=== PATIENT | female | born 1945 | race Caucasian/White ===

== ENCOUNTER → 2016-05-29 | Outpatient (REF) | payer MEDICARE | LOC: M SFHCPLAZ 16:35 | PROVIDERS: ATTEND Internal Medicine | DX: R21 Rash and other nonspecific skin eruption (principal) ==

== ENCOUNTER → 2016-05-30 | Outpatient (CLI) | payer MEDICARE ==
[2016-06-02 00:08] LABS: HSV TYPE I IgM AB <1:10 titer (<1:10); HSV TYPE II IgM ABY <1:10 titer (<1:10)
== END ==
LOC: M LAB 13:10
PROVIDERS: ATTEND Internal Medicine
DX: R21 Rash and other nonspecific skin eruption (principal)

== ENCOUNTER → 2016-06-05 | Outpatient (CLI) | payer MEDICARE ==
--- NOTE | 2016-06-05 14:49 | REPMRS ---
Patient History The patient states she had a clinical breast exam in 05/2016. Patient is postmenopausal. No known family history of cancer. Benign cyst aspiration. Digital Woman Screen Mammo: June 05, 2016 - Exam #: [id number] Bilateral CC and MLO view(s) were taken. Technologist: Ijeoma Alves, Technologist Prior study comparison: April 28, 2015, digital woman screen mammo performed at [facility]. April 22, 2014, digital woman screen mammo performed at [facility]. April 21, 2013, digital woman screen mammo performed at [facility]. FINDINGS: There are scattered fibroglandular densities. There has been no change in the appearance of the mammogram from the prior studies. There is a mild amount of scattered fibroglandular density which is fairly symmetric. There is no interval development of dominant mass, architectural distortion, or clustered microcalcification suggestive of malignancy. ASSESSMENT: BI-RADS/ACR category 1 mammogram. Negative. Recommendation Routine screening mammogram in 1 year (for women over age 40). This mammogram was interpreted with the aid of an FDA-approved computer-aided dectection system. Electronically Signed By: Melecio Barrios MD 06/05/16 [id number]
== END ==
LOC: M WHC 13:11
PROVIDERS: ATTEND Nurse Practitioner Family
DX: Z01.419 Encounter for gynecological examination (general) (routine) without abnormal findings (principal); Z12.31 Encounter for screening mammogram for malignant neoplasm of breast; Z78.0 Asymptomatic menopausal state; Z12.12 Encounter for screening for malignant neoplasm of rectum
CPT/HCPCS: 82270; G0101; G0202

== ENCOUNTER → 2016-11-27 | Outpatient (REF) | payer MEDICARE ==
[2016-11-27 12:05] LABS: ALBUMIN 3.7 GM/DL (3.2-5.2); ALBUMIN/GLOBULIN RATIO 1.16 (1.00-1.93); ALKALINE PHOSPHATASE 49 U/L (45-117); ALT/SGPT 26 U/L (12-78); ANION GAP 7 MEQ/L (8-16); AST/SGOT 21 U/L (15-37); BILIRUBIN,TOTAL 0.5 MG/DL (0.2-1.0); BLOOD UREA NITROGEN 18 MG/DL (7-18); CALCIUM LEVEL 9.1 MG/DL (8.8-10.2); CARBON DIOXIDE LEVEL 28 MEQ/L (21-32); CHLORIDE LEVEL 107 MEQ/L (98-107); CHOLESTEROL LEVEL 218 MG/DL (<200); CREATININE FOR GFR 0.75 MG/DL (0.55-1.02); GLOMERULAR FILTRATION RATE > 60.0 (>39); GLUCOSE, FASTING 91 MG/DL (83-110); POTASSIUM SERUM 4.1 MEQ/L (3.5-5.1); SODIUM LEVEL 142 MEQ/L (136-145); TOTAL PROTEIN 6.9 GM/DL (6.4-8.2); TRIGLYCERIDES LEVEL 41 MG/DL (<150)
== END ==
LOC: M SFHCPLAZ 09:04
PROVIDERS: ATTEND Internal Medicine
DX: Z00.00 Encounter for general adult medical examination without abnormal findings (principal); E78.00 Pure hypercholesterolemia, unspecified

== ENCOUNTER → 2017-01-30 | Outpatient (REF) | payer MEDICARE ==
[2017-01-30 15:11] LABS: HEPATITIS B SURFACE ANTIBODY POSITIVE (POSITIVE)
== END ==
LOC: M SFHCPLAZ 13:39
PROVIDERS: ATTEND Internal Medicine Infectious Disease
DX: B19.11 Unspecified viral hepatitis B with hepatic coma (principal)

== ENCOUNTER → 2017-05-28 | Outpatient (REF) | payer MEDICARE ==
[2017-05-28 12:08] LABS: HEMATOCRIT 42.9 % (36.0-47.0); HEMOGLOBIN 14.1 g/dl (12.0-16.0); MEAN CORPUSCULAR HEMOGLOBIN 31.6 pg (27.0-33.0); MEAN CORPUSCULAR HGB CONC 32.9 g/dl (32.0-36.5); MEAN CORPUSCULAR VOLUME 96.2 fl (80.0-96.0); PLATELET COUNT, AUTOMATED 219 10^3/uL (150-450); RED BLOOD COUNT 4.46 10^6/uL (4.00-5.40); WHITE BLOOD COUNT 5.6 10^3/uL (4.0-10.0)
[2017-05-28 12:40] LABS: ALBUMIN 3.9 GM/DL (3.2-5.2); ALKALINE PHOSPHATASE 41 U/L (45-117); ALT/SGPT 25 U/L (12-78); ANION GAP 8 MEQ/L (8-16); AST/SGOT 24 U/L (7-37); BILIRUBIN,TOTAL 0.7 MG/DL (0.2-1.0); BLOOD UREA NITROGEN 13 MG/DL (7-18); CALCIUM LEVEL 9.1 MG/DL (8.8-10.2); CARBON DIOXIDE LEVEL 29 MEQ/L (21-32); CHLORIDE LEVEL 106 MEQ/L (98-107); CHOLESTEROL LEVEL 235 MG/DL (<200); CHOLESTEROL RISK RATIO 2.397 (<5); CREATININE FOR GFR 0.71 MG/DL (0.55-1.02); GLOMERULAR FILTRATION RATE > 60.0 (>39); GLUCOSE, FASTING 87 MG/DL (83-110); HDL CHOLESTEROL 98 MG/DL (>40); LDL CHOLESTEROL 128.6 MG/DL (<100); NON-HDL-C 137 MG/DL; POTASSIUM SERUM 4.3 MEQ/L (3.5-5.1); SODIUM LEVEL 143 MEQ/L (136-145); TOTAL PROTEIN 6.9 GM/DL (6.4-8.2); TRIGLYCERIDES LEVEL 42 MG/DL (<150)
== END ==
LOC: M SFHCPLAZ 09:41
DX: F41.8 Other specified anxiety disorders (principal); E78.5 Hyperlipidemia, unspecified
CPT/HCPCS: 84443

== ENCOUNTER → 2017-06-06 | Outpatient (CLI) | payer MEDICARE | LOC: M WHC 10:49 | DX: Z01.419 Encounter for gynecological examination (general) (routine) without abnormal findings (principal); Z12.31 Encounter for screening mammogram for malignant neoplasm of breast (principal); Z78.0 Asymptomatic menopausal state; Z12.12 Encounter for screening for malignant neoplasm of rectum | CPT/HCPCS: 77067; G0123 ==

== ENCOUNTER → 2017-06-06 | Outpatient (REF) | payer MEDICARE | LOC: M SFHCWAGY 11:24 | DX: Z01.419 Encounter for gynecological examination (general) (routine) without abnormal findings (principal); N95.2 Postmenopausal atrophic vaginitis | CPT/HCPCS: G0123 ==

== ENCOUNTER → 2018-05-29 | Outpatient (CLI) | payer MEDICARE ==
--- NOTE | 2018-05-29 12:34 | REPMRS ---
Patient History The patient states she had a clinical breast exam in 05/2018. Patient is postmenopausal. No known family history of cancer. Benign cyst aspiration. No Hormone Replacement Therapy Digital Woman Screen Mammo: May 29, 2018 - Exam #: [id number] Bilateral CC and MLO view(s) were taken. Technologist: Ijeoma Alves, Technologist Prior study comparison: June 06, 2017, digital woman screen mammo performed at [facility]. June 05, 2016, digital woman screen mammo performed at [facility]. April 28, 2015, digital woman screen mammo performed at [facility]. FINDINGS: There are scattered fibroglandular densities. There is a stable subareolar nodule in the right breast unchanged from multiple prior studies. There has been no change in the appearance of the mammogram from the prior studies. There is a mild amount of scattered fibroglandular density which is fairly symmetric. There is no interval development of dominant mass, architectural distortion, or clustered microcalcification suggestive of malignancy. 3-D tomosynthesis shows no additional findings. Assessment: BI-RADS/ACR category 2 mammogram. Benign finding(s). Recommendation Routine screening mammogram of both breasts in 1 year (for women over age 40). This patient's Lifetime Breast Cancer RIsk is estimated at 4.9 %. This mammogram was interpreted with the aid of an FDA-approved computer-aided dectection system. Electronically Signed By: Melecio Barrios MD 05/29/18 [id number]
== END ==
LOC: M WHC 11:14
PROVIDERS: ATTEND Nurse Practitioner Family
DX: Z12.31 Encounter for screening mammogram for malignant neoplasm of breast (principal); N63.10 Unspecified lump in the right breast, unspecified quadrant; Z78.0 Asymptomatic menopausal state; Z92.89 Personal history of other medical treatment; Z12.12 Encounter for screening for malignant neoplasm of rectum
CPT/HCPCS: 77063; 77067; 82270; G0101

== ENCOUNTER → 2018-11-07 | Outpatient (REF) | payer MEDICARE ==
[2018-11-07 14:05] LABS: BASO % 0.4 % (0.0-1.0); EOS # 0.2 10^3/uL (0.0-0.50); EOS % 2.1 % (0.0-3.0); HEMATOCRIT 41.5 % (36.0-47.0); HEMOGLOBIN 13.7 g/dl (12.0-15.5); LYMPH # 1.9 10^3/uL (1.5-4.5); MEAN CORPUSCULAR HEMOGLOBIN 31.5 pg (27.0-33.0); MEAN CORPUSCULAR VOLUME 95.4 fl (80.0-96.0); MONO # 0.7 10^3/uL (0.0-0.8); MONO % 7.9 % (0.0-5.0); NEUTROPHILS # 6.4 10^3/uL (1.8-7.7); PLATELET COUNT, AUTOMATED 245 10^3/uL (150-450); RED BLOOD COUNT 4.35 10^6/uL (4.00-5.40); WHITE BLOOD COUNT 9.3 10^3/uL (4.0-10.0)
[2018-11-07 14:39] LABS: ALBUMIN 3.5 GM/DL (3.2-5.2); ALT/SGPT 27 U/L (12-78); BILIRUBIN,TOTAL 0.7 MG/DL (0.2-1.0); BLOOD UREA NITROGEN 9 MG/DL (7-18); CALCIUM LEVEL 8.6 MG/DL (8.8-10.2); CARBON DIOXIDE LEVEL 27 MEQ/L (21-32); CHLORIDE LEVEL 104 MEQ/L (98-107); GLOMERULAR FILTRATION RATE > 60.0 (>39); GLUCOSE, FASTING 77 MG/DL (70-100); POTASSIUM SERUM 3.1 MEQ/L (3.5-5.1); SODIUM LEVEL 141 MEQ/L (136-145); TOTAL PROTEIN 6.6 GM/DL (6.4-8.2)
== END ==
LOC: M SFHCPLAZ 11:38
PROVIDERS: ATTEND Family Medicine
DX: R19.7 Diarrhea, unspecified (principal)
CPT/HCPCS: 36415; 80053; 82270; 85025; 87507; G0463

== ENCOUNTER → 2018-11-28 | Outpatient (REF) | payer MEDICARE | LOC: M LAB REF 19:07 | PROVIDERS: ATTEND Physician Assistant Medical | DX: R19.7 Diarrhea, unspecified (principal) ==

== ENCOUNTER → 2019-02-18 | Outpatient (CLI) | payer MEDICARE ==
[2019-02-18 14:49] LABS: BLOOD UREA NITROGEN 14 MG/DL (7-18); GLOMERULAR FILTRATION RATE > 60.0 (>39)
== END ==
LOC: M LAB 13:31
PROVIDERS: ATTEND Internal Medicine Gastroenterology
DX: R63.4 Abnormal weight loss (principal)

== ENCOUNTER → 2019-03-05 | Outpatient (CLI) | payer MEDICARE ==
[~2019-03-05] MED LIST: GASTROGRAFIN SOLUTION 30ML (Q9963) As Ordered ONE; ISOVUE-370 76% 100ML VIAL (Q9967) As Ordered ONE
--- NOTE | 2019-03-05 15:11 | REP ---
CT ABDOMEN AND PELVIS WITH IV AND ORAL CONTRAST: HISTORY: Abnormal weight loss. Comparison CT study December 27, 2011. CT CONTRAST DOSE: 100 mL of intravenous Isovue [address] FINDINGS: There is an S-shaped thoracolumbar scoliotic curve on computer technology instructor view. Bowel gas pattern is normal. The lung bases are clear. There is a tiny cyst in the left lobe of the liver and a small hemangioma is noted in the right lobe of the liver. Left lobe cyst measures 0.6 cm. The hemangioma measures 1.2 cm. There is also a cyst in the caudal aspect the right hepatic lobe measuring 1.6 cm in diameter. All of these are visible previously in 2012. No splenic abnormality is observed. No adrenal masses seen. The gallbladder is unremarkable. No pancreatic mass or cyst is seen. No retroperitoneal mass or adenopathy is seen. There is moderate colonic stool throughout the colon. No small bowel dilation is seen. Urinary bladder is unremarkable. No uterine or adnexal pathology is appreciated. No abdominal wall defect is seen. No colonic or small bowel mass lesion is observed. No adenopathy is seen. No abdominal wall defect. Bone window settings show degenerative changes. IMPRESSION: Moderate stool. No significant abdominal or pelvic abnormality. Electronically Signed by Elias Barrios MD 03/05/2019 06:27 P
== END ==
LOC: M RAD 08:39
PROVIDERS: ATTEND Internal Medicine Gastroenterology
DX: D18.03 Hemangioma of intra-abdominal structures (principal); K76.89 Other specified diseases of liver; R63.4 Abnormal weight loss
CPT/HCPCS: 74177; Q9963; Q9967

== ENCOUNTER 2019-04-21 13:10 | Day surgery (SDC) | payer MEDICARE ==
[~2019-04-21] VITALS: Ht 167.6 cm; Wt 66.6 kg
[~2019-04-21 13:10] MED LIST changes: +ACYC1CAP20 PO; +ATOR40TA75 PO; +CHOL100029 PO; +DICY10CA13 PO; -GASTROGRAFIN SOLUTION 30ML (Q9963) As Ordered ONE; -ISOVUE-370 76% 100ML VIAL (Q9967) As Ordered ONE; +KP F1200 PO; +MULTCAP PO; +NS 1,000 ML IV ONE; +SERT-138 PO; +TRAZ-252 PO
[2019-04-21] MEDS ORDERED: LIDOCAINE 2% INJ 100 MG/5 ML SDV (FOR ANES.) As Ordered ONE (14:19)
[2019-04-21] MEDS ORDERED: PROPOFOL 200 MG/20 ML VIAL As Ordered ONE ×2 (14:19→14:31)
--- NOTE | 2019-04-21 14:22 | ROOR ---
Patient Name: Virginia Maguire Procedure Date: 04/21/2019 2:10 PM Date of : 1945 Age: 73 Room: [facility] Gender: Female Note Status: Finalized Procedure: Upper GI endoscopy Indications: Weight loss Providers: Pawel LEWIS MD Referring MD: Demario Juarez MD Requesting Provider: Medicines: Monitored Anesthesia Care Complications: No immediate complications. Procedure: Pre-Anesthesia Assessment: - The heart rate, respiratory rate, oxygen saturations, blood pressure, adequacy of pulmonary ventilation, and response to care were monitored throughout the procedure. The Endoscope was introduced through the mouth, and advanced to the second part of duodenum. The upper GI endoscopy was accomplished without difficulty. The patient tolerated the procedure well. Findings: The esophagus was normal. The stomach was normal. The examined duodenum was normal. Impression: - Normal esophagus. - Normal stomach. - Normal examined duodenum. - No specimens collected. Recommendation: - Perform a colonoscopy. Pawel Lewis MD Pawel LEWIS MD 04/21/2019 2:21:37 PM Electronically signed by Pawel LEWIS MD Number of Addenda: 0 Note Initiated On: 04/21/2019 2:10 PM Estimated Blood Loss: Estimated blood loss: none.
--- NOTE | 2019-04-21 15:01 | ROOR ---
Patient Name: Virginia Maguire Procedure Date: 04/21/2019 2:11 PM Date of : 1945 Age: 73 Room: [facility] Gender: Female Note Status: Finalized Procedure: Colonoscopy Indications: Weight loss Providers: Pawel LEWIS MD Referring MD: Demario Juarez MD Requesting Provider: Medicines: Monitored Anesthesia Care Complications: No immediate complications. Procedure: Pre-Anesthesia Assessment: - The heart rate, respiratory rate, oxygen saturations, blood pressure, adequacy of pulmonary ventilation, and response to care were monitored throughout the procedure. The Colonoscope was introduced through the anus and advanced to the cecum, identified by appendiceal orifice and ileocecal valve. The colonoscopy was somewhat difficult due to significant looping and suboptimal prep. The patient tolerated the procedure well. The quality of the bowel preparation was fair. Findings: The perianal and digital rectal examinations were normal. A 15 mm polyp was found in the mid transverse colon. The polyp was sessile. The polyp was removed with a piecemeal technique using a hot snare. Resection and retrieval were complete. To prevent bleeding after the polypectomy, four hemostatic clips were successfully placed. Area was tattooed with an injection of 1 mL of Zeynep ink. The exam was otherwise normal throughout the examined colon. Impression: - Preparation of the colon was fair with a very tortuous and elongated colon, making this exam somewhat suboptimal. - One 15 mm polyp in the mid transverse colon, removed piecemeal using a hot snare. Resected and retrieved. Clips were placed. Tattooed. Recommendation: - Repeat colonoscopy in 1 year because the bowel preparation was suboptimal and for surveillance of polyps greater than 1 cm in size. - No ibuprofen, naproxen, or other non-steroidal anti-inflammatory drugs for 10 days after polyp removal. - Telephone endoscopist for pathology results in 2 weeks. Pawel Lewis MD Pawel LEWIS MD 04/21/2019 3:00:57 PM Electronically signed by Pawel LEWIS MD Number of Addenda: 0 Note Initiated On: 04/21/2019 2:11 PM Estimated Blood Loss: Estimated blood loss: none.
[2019-04-21 15:54] VITALS: BP 120/65
== END 2019-04-21 15:56 | disposition home or self-care (01) ==
LOC: M OPP 13:10
PROVIDERS: ATTEND Internal Medicine Gastroenterology
DX: R63.4 Abnormal weight loss (principal); K63.5 Polyp of colon; Z79.899 Other long term (current) drug therapy; Z88.8 Allergy status to other drugs, medicaments and biological substances; Z87.891 Personal history of nicotine dependence; Z86.19 Personal history of other infectious and parasitic diseases

== ENCOUNTER → 2019-06-02 | Outpatient (CLI) | payer MEDICARE ==
[~2019-06-02] MED LIST changes: -NS 1,000 ML IV ONE
--- NOTE | 2019-06-02 11:48 | REPMRS ---
Patient History The patient states she had a clinical breast exam in 2019. No known family history of cancer. Benign cyst aspiration. No Hormone Replacement Therapy Digital Woman Screen Mammo: June 02, 2019 - Exam #: [id number] Bilateral CC and MLO view(s) were taken. Technologist: Francisca Germain, Technologist Prior study comparison: May 29, 2018, bilateral digital woman screen mammo performed at [facility]. June 06, 2017, digital woman screen mammo performed at [facility]. June 05, 2016, digital woman screen mammo performed at [facility]. FINDINGS: There are scattered fibroglandular densities. There has been no change in the appearance of the mammogram from the prior studies. There is a mild amount of scattered fibroglandular density which is fairly symmetric. There is no interval development of dominant mass, architectural distortion, or grouped microcalcification suggestive of malignancy. 3-D tomosynthesis shows no additional findings. Assessment: BI-RADS/ACR category 1 mammogram. Negative Mammogram. Recommendation Routine screening mammogram of both breasts in 1 year (for women over age 40). This patient's Lifetime Breast Cancer Risk is estimated at 4.6 %. This mammogram was interpreted with the aid of an FDA-approved computer-aided dectection system. Electronically Signed By: Melecio Barrios MD 06/02/19 [id number]
--- NOTE | 2019-06-17 10:35 | DEXA ---
AP SPINE L1 - L4 1.513 2.6 4.3 LT FEMUR TOTAL 0.906 -0.8 0.8 LT NECK 0.904 -1.0 0.9 RT FEMUR TOTAL 0.841 -1.3 0.3 RT NECK 0.857 -1.3 0.5 TOTAL BODY TOTAL OTHER COMMENTS: Normal bone densitometry of the spine. There is low bone density of the hips. The density of the spine has increased 9.9% since the initial exam on 08/26/2002. The spine density has decreased 2.8% since the most recent exam on 03/28/2011. The density of the left hip has decreased 18.5% since the initial exam on 08/26/2002. The density of the left hip has decreased 9.6% since the most recent exam on 03/28/2011. The density of the right hip has decreased 19.8% since the initial exam on 08/26/2002. The density of the right hip has decreased 13.5% since the most recent exam on 03/28/2011. FOLLOW-UP: Recommendation for the next bone density exam: 2 years. SHANNAN
== END ==
LOC: M WHC 10:30
PROVIDERS: ATTEND Nurse Practitioner Family
DX: Z01.419 Encounter for gynecological examination (general) (routine) without abnormal findings (principal); Z12.31 Encounter for screening mammogram for malignant neoplasm of breast; N95.9 Unspecified menopausal and perimenopausal disorder; Z86.018 Personal history of other benign neoplasm
CPT/HCPCS: 77063; 77067; 77080; G0101

== ENCOUNTER → 2019-09-24 | Outpatient (CLI) | payer MEDICARE | LOC: M LABSMTC 12:48 | PROVIDERS: ATTEND Family Medicine | DX: Z20.828 Contact with and (suspected) exposure to other viral communicable diseases (principal) ==

== ENCOUNTER → 2020-01-13 | Outpatient (CLI) | payer MEDICARE ==
[2020-01-13 13:58] LABS: HEMATOCRIT 44.5 % (36.0-47.0); HEMOGLOBIN 14.4 g/dl (12.0-15.5); MEAN CORPUSCULAR HEMOGLOBIN 31.6 pg (27.0-33.0); MEAN CORPUSCULAR HGB CONC 32.4 g/dl (32.0-36.5); MEAN CORPUSCULAR VOLUME 97.6 fl (80.0-96.0); PLATELET COUNT, AUTOMATED 225 10^3/uL (150-450); RED BLOOD COUNT 4.56 10^6/uL (4.00-5.40); WHITE BLOOD COUNT 5.6 10^3/uL (4.0-10.0)
[2020-01-13 14:31] LABS: ALT/SGPT 26 U/L (12-78); BILIRUBIN,TOTAL 0.6 MG/DL (0.2-1.0); BLOOD UREA NITROGEN 15 MG/DL (7-18); C REACTIVE PROTEIN QUANTITATIV < 0.30 MG/DL (0.00-0.30); CALCIUM LEVEL 9.3 MG/DL (8.8-10.2); CARBON DIOXIDE LEVEL 29 MEQ/L (21-32); CHLORIDE LEVEL 105 MEQ/L (98-107); CHOLESTEROL LEVEL 217 MG/DL (<200); CHOLESTEROL RISK RATIO 2.465 (<5); CREATININE FOR GFR 0.78 MG/DL (0.55-1.30); GLOMERULAR FILTRATION RATE > 60.0 (>39); GLUCOSE, FASTING 96 MG/DL (70-100); HDL CHOLESTEROL 88 MG/DL (>40); LDL CHOLESTEROL 119 MG/DL (<100); NON-HDL-C 129 MG/DL; POTASSIUM SERUM 4.2 MEQ/L (3.5-5.1); SODIUM LEVEL 141 MEQ/L (136-145); TRIGLYCERIDES LEVEL 49 MG/DL (<150)
[2020-01-13 15:08] LABS: ERYTHROCYTE SEDIMENTATION RATE 5 mm/hr (0-30)
== END ==
LOC: M PLALAB 11:17
PROVIDERS: ATTEND Internal Medicine
DX: L51.9 Erythema multiforme, unspecified (principal); E78.5 Hyperlipidemia, unspecified

== ENCOUNTER → 2020-03-08 | Outpatient (CLI) | payer MEDICARE | LOC: M LABSMTC 11:03 | PROVIDERS: ATTEND Family Medicine | DX: Z20.828 Contact with and (suspected) exposure to other viral communicable diseases (principal) | CPT/HCPCS: C9803; U0003 ==

== ENCOUNTER → 2020-04-09 | Outpatient (CLI) | payer SELFPAY | LOC: M LABSMTC 10:05 | PROVIDERS: ATTEND Pediatrics | DX: Z20.828 Contact with and (suspected) exposure to other viral communicable diseases (principal) ==

== ENCOUNTER → 2020-05-09 | Outpatient (CLI) | payer SELFPAY | LOC: M LABSMTC 11:34 | PROVIDERS: ATTEND Pediatrics | DX: Z20.828 Contact with and (suspected) exposure to other viral communicable diseases (principal) ==

== ENCOUNTER → 2020-06-07 | Outpatient (CLI) | payer MEDICARE ==
[~2020-06-07] MED LIST changes: +ACID1TAB PO; +ATOR1TAB21 PO; +D 10CAP PO; +VITMTA PO
--- NOTE | 2020-06-07 11:47 | REPMRS ---
Patient History The patient states she had a clinical breast exam in 05/2020 No known family history of cancer. Benign cyst aspiration. No Hormone Replacement Therapy 3D TOMOSYNTHESIS WAS PERFORMED. The Ninfa Martinez lifetime risk for breast cancer is 4.3 %. Volpara breast density b. Digital Woman Screen Mammo: June 07, 2020 - Exam #: [id number] Bilateral CC and MLO view(s) were taken. Technologist: Tonya Silvestre, Technologist Prior study comparison: June 02, 2019, bilateral digital woman screen mammo performed at [facility]. May 29, 2018, bilateral digital woman screen mammo performed at [facility]. FINDINGS: There are scattered fibroglandular densities. There has been no change in the appearance of the mammogram from the prior studies. There is a mild amount of residual fibroglandular tissue which is fairly symmetric. There is no interval development of dominant mass, architectural distortion, or clustered microcalcification suggestive of malignancy. Assessment: BI-RADS/ACR category 1 mammogram. Negative Mammogram. Recommendation Routine screening mammogram in 1 year (for women over age 40). This mammogram was interpreted with the aid of an FDA-approved computer-aided dectection system. Electronically Signed By: Selvin Santiago MD 06/07/20 [id number]
== END ==
LOC: M WHC 10:34
PROVIDERS: ATTEND Nurse Practitioner Family
DX: Z01.419 Encounter for gynecological examination (general) (routine) without abnormal findings (principal); Z12.31 Encounter for screening mammogram for malignant neoplasm of breast; Z86.018 Personal history of other benign neoplasm
CPT/HCPCS: 77063; 77067; G0101

== ENCOUNTER → 2020-06-19 | Outpatient (CLI) | payer MEDICARE, SELFPAY | LOC: M LABSMTC 08:12 | PROVIDERS: ATTEND Anesthesiology | DX: Z01.812 Encounter for preprocedural laboratory examination (principal); Z20.822 Contact with and (suspected) exposure to COVID-19 ==

== ENCOUNTER 2020-06-24 08:02 | Day surgery (SDC) | payer MEDICARE ==
[~2020-06-24] VITALS: Ht 172.7 cm; Wt 73.5 kg
[~2020-06-24 08:02] MED LIST changes: +NS 1,000 ML IV ONE
--- OUTSIDE RECORDS SUMMARY | 2020-06-24 08:06 | CCD ---
Author Author [facility] Organization [facility] Address Unknown Phone Unavailable Care Team Providers Care Departure Clerk Name Role Phone Demario Juarez Unavailable PROBLEMS Type Condition ICD9-CM Code AFS45-CA Code Onset Dates Condition S tatus SNOMED Code Notes Problem Chronic diarrhea K52.9 Active [id number] I bel ieve her prior evaluation has been complete (she had a gastroenterology consultation, an EGD and colonoscopy, CT abdomen and a small bowel follow-through in 2011) and there at that time was no evidence of sprue, colitis or tumor causing her diarrhea. I doubt medications are responsible. ?Bile acid diarrhea is a consideration and I had her try Welchol daily in late 2011, without effect. She is already on probiotic and immodium therapy, and was also prescribed dicyclomine which has been quite beneficial and I believe she has irritable bowel syndrome. This is associated with periodic LLQ pain. No further evaluation is necessary at this point, although her diarrhea exacerbated when she had a C. difficile enterocolitis which is now subsiding. Problem Cystocele, midline N81.11 Active 896001802 Problem Depression with anxiety F41.8 Active [id number] She is maintained on trazodone and Zoloft and sees a mental health provider and neurologist regularly. She tried tapering off of her medications in late 2013 but did poorly. Her care is being monitored by a psychiatrist. 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 Her lipid control meets primary prevention targets as of December 2019. She has a very favorable HDL of in the 80s and 90s. She tried stopping her Lipitor in Fall 2013 but her lipid control deteriorated significantly. Problem Cervical radiculopathy M54.12 Active 76653413 Has some tingling in her left trapezius intermittently; recommend shoulder girdle exercises. She mentioned that again in 11/2016, and she felt it related to shoulder disease. Problem Tobacco use disorder Z72.0 Active 57038435 Problem Ocular migraine G43.109 Active 31285000 She has a history of ocular migraine. She had an MRI of her brain in May 2016. Diagnostic testing was also supported by her recent psychologic profile done by her mental health provider. She has documentation of that in her possession. I believe she follows with neurology. Problem Dupuytrens contracture M72.0 Active [id number] Referred to orthopedics November 2016 and again in February 2019, December 2019. 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 She had an extensive evaluation with dermatology and infectious disease at the time. 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 It was likely related to herpes virus infection. She has been on chronic suppression therapy now with acyclovir 400 mg twice daily. Problem Generalized anxiety disorder F41.1 Active 218 42435 Problem Arthralgia, unspecified joint M25.50 Active 57 603298 She had multiple arthralgias related to herpes simplex outbreak in April 2016 through May 2016. These symptoms seem to have subsided mostly. She still wonders about an autoimmune process but I think she simply has osteoarthritis causing her present level of discomfort in the joints. Problem Menopausal disorder N95.9 Active 790405044 Problem History of Clostridium difficile colitis Z86.19 Active [id number] She has been treated with vancomycin in 10/2018 after she developed C. difficile colitis related to a course of Augmentin in early 10/2018. She had recurrence as of 11/2018 and has had further courses, coordinated by her infectious disease managing consultant. This has apparently resolved. Problem Other hammer toe(s) (acquired), left foot M20.42 Active 57643694 Referred to orthopedic provider. Problem Other hammer toe(s) (acquired), right foot M20.41 Active 851236732 Referred to orthopedic provider. ALLERGIES Allergen (clinical drug ingredient) Drug/Non Drug Allergy do cumented on EMR Reaction Allergy Type Onset Date Status Salicylic Acid bleeding- Rectal hemmorhag Drug Allergy Active salicylates bleeding Non Drug Allergy Active ENCOUNTERS from 1945 to 2020-06-06 Encounter Location Date Provider Diagnosis [facility] [place] [address] May, Demario Larry Hyperlipidemia E78.5 ; Erythema multifor me L51.9 and Arthralgia, unspecified joint M25.50 IMMUNIZATIONS Vaccine Route Administration Date Status TDAP 0.5mL (Boostrix) IM Intramuscular October 18, 2018 Administe red Influenza (High Dose 65 & up) Unknown Mar 08, 2016 Ad ministered Influenza (High Dose 65 & up) Unknown Mar 22, 2017 Ad ministered Influenza (High Dose 65 & up) Unknown Feb 13, 2018 Ad ministered Influenza (6mo & up) Fluzone IM Intramuscular Mar 17, 2009 Ad ministered Pneumococcal (VFC) 0.5mL (Prevnar 13) Unknown December 02 019 Administered Zoster 0.65mL (Zostavax) IM Intramuscular May 16, 2012 Admini stered Pneumococcal Adult 0.5mL (Pneumovax 23) Unknown Mar 08, 2016 Administered Pneumococcal Adult 0.5mL (Pneumovax 23) IM Intramuscular Feb 20, 2012 Administered TDAP 0.5mL (Boostrix) IM Intramuscular November 17, 2006 Administe red Influenza (6mo & up) Fluzone IM Intramuscular Mar 12, 2014 Ad ministered Influenza (6mo & up) Fluzone IM Intramuscular Mar 19, 2013 Ad ministered Influenza (6mo & up) Fluzone IM Intramuscular Feb 20, 2012 Ad ministered SOCIAL HISTORY Tobacco Use: Social History Observation Description Date Details (start date - stop date) Former Smoker Sex Assigned At : Social History Observation Description Sex Assigned At Unknown Education: Question Answer Notes Level of Education: Finished College Audit Question Answer Notes Total Score: 5 Interpretation: Alcohol Education Anabaptism: Question Answer Notes Anabaptism 21 [employer] Sexual Hx: Question Answer Notes Had sex in the last 12 months (vaginal, oral, or anal)? Yes Have you ever had an STD? No Prevention Strategies discussed: Other with Men only Use protection? No Drug and Alcohol Question Answer Notes Total Score: 0 Interpretation: No problems reported Alcohol Screening: Question Answer Notes Did you have a drink containing alcohol in the past year? Ye s Points 5 Interpretation Positive How many drinks did you have on a typica l day when you were drinking in the past year? 3 or 4 (1 point) How often did you have a drink containing alcohol in t he past year? Four or more times a week (4 points) BMI Care Goal Follow-Up Question Answer Notes Above Normal BMI Follow-Up Giving encouragement to exercise Tobacco Use: Question Answer Notes Are you a: former smoker REASON FOR REFERRAL No Information VITAL SIGNS No information MEDICATIONS Medication SIG (Take, Route, Frequency, Duration) Notes Start Da te End Date Status Multivitamins OTC 1 tab(s) Orally daily Active Dicyclomine HCl 10 MG 1 cap orally Every 6 hours a s needed for abdominal pain for 30 Days Active Zoloft 100 MG 1 tablet Orally Once a day for 90 day(s) Active Fish Oil 1000 MG 1 capsule Orally once a day Active Vitamin D3 2000 UNIT 2 caps Orally once a day Active Imodium A-D 2 MG 1 tablet Orally daily as needed Active Acidophilus OTC 1 capsule Orally once a day Active TraZODone HCl 50 MG 1 tablet at bedtime as neede d Orally Once a day for 90 day(s) May, Active Lipitor 20 MG 1 tablet Orally three times a week for 90 Active Acyclovir 400 MG 1 tablet Orally Twice a day for 90 Active PROCEDURES No Information RESULTS No Results REASON FOR VISIT Needs appt with labs in 10/2020 MEDICAL (GENERAL) HISTORY Type Description Date Medical History Hyperlipidemia Medical History Posttraumatic stress disorder Medical History Depression with anxiety Medical History Cervical radiculopathy Medical History Arthralgia, unspecified joint Surgical History tubal ligation in her 30's Surgical History T & A as a child Surgical History colonoscopy 02/2005, 01/2012 Surgical History EGD 01/2012 Goals Section No Information Health Concerns No Information MEDICAL EQUIPMENT No Information MENTAL STATUS No Information FUNCTIONAL STATUS No Information ASSESSMENTS Encounter Date Diagnosis Assessment Notes Treatment Notes Treatm ent Clinical Notes May, Hyperlipidemia (ICD-10 - E78.5) On Lipit or. Her lipid control meets primary prevention targets as of December 2019. She has a very favorable HDL of in the 80s and 90s. She tried stopping her Lipitor in Fall 2013 but her lipid control deteriorated significantly. May, Erythema multiforme (ICD-10 - L51.9) Amna fishman was the diagnosis after she had a diffuse rash in April 2016. It was likely related to herpes virus infection. She has been on chronic suppression therapy now with acyclovir 400 mg twice daily. May, Arthralgia, unspecified joint (ICD-10 - M25.50) She had multiple arthralgias related to herpes simplex outbreak in April 2016 through May 2016. These symptoms seem to have subsided mostly. She still wonders about an autoimmune process but I think she simply has osteoarthritis causing her present level of discomfort in the joints. PLAN OF TREATMENT Medication Medication Name Sig Start Date Stop Date Acyclovir 400 MG 1 tablet Orally Twice a day for 90 Lipitor 20 MG 1 tablet Orally three times a week for 90 Future Test Test Name Order Date CBC with Differential 20201024 Comprehensive Metabolic Profile (CMP) 20201024 LIPID PANEL (CARDIAC RISK) 20201024 C REACTIVE PROTEIN QUANTITATIV (At [facility]) [id number] ERYTHROCYTE SEDIMENTATION RATE [id number] Next Appt Details Provider Name:Erum Stephenie, 2020-06-07 10:30:00 AM, [address] [place] [address], [phone], Provider Name:Conor Solis, 2020-06-15 11:0 0:00 AM, [address] [place] [address], [phone] Provider Name:Demario Juarez, 2020-10-31 03 :30:00 PM, [address] [place] [address], [phone], Insurance Providers Payer Name Payer Address Payer Phone Insured Name Patient Relati onship to Insured Coverage Start Date Coverage End Date MEDICARE COMPLETE [facility] [address] [address] [facility] [id number] MALLY EAGLE
--- OUTSIDE RECORDS SUMMARY | 2020-06-24 08:06 | CCD ---
Author Author [facility] Organization [facility] [employer] ems Address Unknown Phone Unavailable Care Team Providers Care Head Of Business Development Name Role Phone Conor Solis Unavailable PROBLEMS Type Condition ICD9-CM Code [id number] Code Onset Dates Condition S tatus SNOMED Code Notes Problem Chronic diarrhea K52.9 Active [id number] I bel ieve her prior evaluation has [...] now subsiding. Problem Cystocele, midline N81.11 Active 411715203 Problem Depression with anxiety F41.8 Active 04040169 6 She is maintained on trazodone and Zoloft and sees a mental health provider and neurologist regularly. She tried tapering off of her medications in late 2013 but did poorly. Her care is being monitored by a psychiatrist. Problem Postmenopausal atrophic vaginitis N95.2 Active 92511402 Problem Hyperlipidemia E78.5 Active 98533465 On Lipit or. Her lipid control meets primary prevention targets as of May 2017. She has a very favorable HDL of 98. She tried stopping her Lipitor in Fall 2013 but her lipid control deteriorated significantly. Problem Cervical radiculopathy M54.12 Active 39393299 Has some tingling in her left trapezius intermittently; recommend shoulder girdle exercises. She mentioned that again in 11/2016, and she felt it related to shoulder disease. Problem Tobacco use disorder Z72.0 Active 88877011 Problem Ocular migraine G43.109 Active 41082278 She has a history of ocular migraine. She had an MRI of her brain in May 2016. Diagnostic testing was also supported by her recent psychologic profile done by her mental health provider. She has documentation of that in her possession. I believe she follows with neurology. Problem Dupuytrens contracture M72.0 Active 541025591 Referred to orthopedics November 2016 and again in February 2019. Problem Herpes simplex type 2 infection B00.9 Active 581094676 She had a significant outbreak with associated erythema multiforme in April 2016. She had an extensive evaluation with dermatology and infectious disease at the time. 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 It was likely related to herpes virus infection. She has been on chronic suppression therapy now with acyclovir 400 mg twice daily. Problem Generalized anxiety disorder F41.1 Active 218 63751 Problem Arthralgia, unspecified joint M25.50 Active 57 565865 She had multiple arthralgias related to herpes simplex outbreak in April 2016 through May 2016. These symptoms seem to have subsided mostly. She still wonders about an autoimmune process but I think she simply has osteoarthritis causing her present level of discomfort in the joints. Problem Menopausal disorder N95.9 Active 007840364 Problem History of Clostridium difficile colitis Z86.19 Active [id number] She has been treated with vancomycin in 10/2018 after she developed C. difficile colitis related to a course of Augmentin in early 10/2018. She had recurrence as of 11/2018 and has had further courses, coordinated by her infectious disease databases computer consultant. This has apparently resolved. Problem Other hammer toe(s) (acquired), left foot M20.42 Active 19900796 Referred to orthopedic provider. Problem Other hammer toe(s) (acquired), right foot M20.41 Active 739996690 Referred to orthopedic provider. ALLERGIES Allergen (clinical drug ingredient) Drug/Non Drug Allergy do cumented on EMR Reaction Allergy Type Onset Date Status Salicylic Acid bleeding- Rectal hemmorhag Drug Allergy Active salicylates bleeding Non Drug Allergy Active ENCOUNTERS from 1945 to 2020-05-17 Encounter Location Date Provider Diagnosis [address] [address] 16 Apr, 2020 Conor Solis Post-traumatic stress disorder, unspecif ied F43.10 and Generalized anxiety disorder F41.1 IMMUNIZATIONS Vaccine Route Administration Date Status Influenza (High Dose 65 & up) Unknown Feb 13, 2018 Ad ministered Influenza (High Dose 65 & up) Unknown Mar 22, 2017 Ad ministered TDAP 0.5mL (Boostrix) IM Intramuscular November 17, 2006 Administe red TDAP 0.5mL (Boostrix) IM Intramuscular October 18, 2018 Administe red Influenza (6mo & up) Fluzone IM Intramuscular Mar 17, 2009 Ad ministered Influenza (High Dose 65 & up) Unknown Mar 08, 2016 Ad ministered Pneumococcal (VFC) 0.5mL (Prevnar 13) Unknown December 02 019 Administered Zoster 0.65mL (Zostavax) IM Intramuscular May 16, 2012 Admini stered Pneumococcal Adult 0.5mL (Pneumovax 23) Unknown Mar 08, 2016 Administered Pneumococcal Adult 0.5mL (Pneumovax 23) IM Intramuscular Feb 20, 2012 Administered Influenza (6mo & up) Fluzone IM Intramuscular [...] Notes Total Score: 5 Interpretation: Alcohol Education Episcopalian: Question Answer Notes Episcopalian 21 [employer] Sexual Hx: Question Answer Notes Had sex [...] Information RESULTS No Results REASON FOR VISIT TS FOLLOW UP MEDICAL (GENERAL) HISTORY Type Description Date Medical [...] Notes Treatment Notes Treatm ent Clinical Notes Apr, Post-traumatic stress disorder, unspecified (ICD -10 - F43.10) Apr, Generalized anxiety disorder (ICD-10 - F41.1) Apr, Other Utilized CBT to role play a challenging cognitive distortions technique for decreasing her symptoms of anxiety. Shivani arrived on time for her appointment and actively participated throughout her session. Shivani was responsive to the CBT challenging cognitive distortions intervention for decreasing her symptoms of anxiety. Shivani reports that she has been experiencing anxiety related related to her frustration with her and feeling the need to get out of the house more. Shivani agreed to utilize the technique that we role played and will return for psychotherapy on 05/25/2020. Shivani is aware to call for a soon appointment if needed and to utilize the ED for MH emergencies. PLAN OF TREATMENT Medication Medication Name Sig Start Date Stop Date Acyclovir 400 MG 1 tablet Orally Twice a day for 90 Lipitor 20 MG 1 tablet Orally three times a week for 90 Next Appt Details Provider Name:Conor Solis, 2020-05-25 11:0 0:00 AM, [address] [place] [address], [phone] Provider Name:Erum Casiano, 2020-06-07 10:30:00 AM, [address] [place] [address], [phone], Insurance Providers Payer Name Payer Address Payer Phone Insured Name Patient Relati onship to Insured Coverage Start Date Coverage End Date MEDICARE COMPLETE UNITED HEALTHCARE [address] [address] [facility] [phone] MALLY EAGLE
--- OUTSIDE RECORDS SUMMARY | 2020-06-24 08:06 | CCD ---
Author Author [facility] Organization [facility] Address Unknown Phone Unavailable Care Team Providers Care Store Deli Manager Name Role Phone Erum Casiano Unavailable PROBLEMS Type Condition ICD9-CM Code [id number] Code Onset Dates Condition S tatus SNOMED Code Notes Problem Chronic diarrhea K52.9 Active [id number] I bel ieve her prior evaluation has [...] now subsiding. Problem Cystocele, midline N81.11 Active 554232314 Problem Depression with anxiety F41.8 Active 18190317 6 She is maintained on trazodone and Zoloft and sees a mental health provider and neurologist regularly. She tried tapering off of her medications in late 2013 but did poorly. Her care is being monitored by a psychiatrist. Problem Postmenopausal atrophic vaginitis N95.2 Active 83947749 Problem Hyperlipidemia E78.5 Active 12246297 On Lipit or. Her lipid control meets primary prevention targets as of December 2019. She has a very favorable HDL of in the 80s and 90s. She tried stopping her Lipitor in Fall 2013 but her lipid control deteriorated significantly. Problem Cervical radiculopathy M54.12 Active 93606163 Has some tingling in her left trapezius intermittently; recommend shoulder girdle exercises. She mentioned that again in 11/2016, and she felt it related to shoulder disease. Problem Tobacco use disorder Z72.0 Active 11394232 Problem Ocular migraine G43.109 Active 89184811 She has a history of ocular migraine. She had an MRI of her brain in May 2016. Diagnostic testing was also supported by her recent psychologic profile done by her mental health provider. She has documentation of that in her possession. I believe she follows with neurology. Problem Dupuytrens contracture M72.0 Active 590517468 Referred to orthopedics November 2016 and again in February 2019, December 2019. Problem Herpes simplex type 2 infection B00.9 Active 454531863 She had a significant outbreak with associated erythema multiforme in April 2016. She had an extensive evaluation with dermatology and infectious disease at the time. 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 It was likely related to herpes virus infection. She has been on chronic suppression therapy now with acyclovir 400 mg twice daily. Problem Generalized anxiety disorder F41.1 Active 218 20138 Problem Arthralgia, unspecified joint M25.50 Active 57 746630 She had multiple arthralgias related to herpes simplex outbreak in April 2016 through May 2016. These symptoms seem to have subsided mostly. She still wonders about an autoimmune process but I think she simply has osteoarthritis causing her present level of discomfort in the joints. Problem Menopausal disorder N95.9 Active 796305164 Problem History of Clostridium difficile colitis Z86.19 Active [id number] She has been treated with vancomycin in 10/2018 after she developed C. difficile colitis related to a course of Augmentin in early 10/2018. She had recurrence as of 11/2018 and has had further courses, coordinated by her infectious disease web consultant. This has apparently resolved. Problem Other hammer toe(s) (acquired), left foot M20.42 Active 45061829 Referred to orthopedic provider. Problem Other hammer toe(s) (acquired), right foot M20.41 Active 213472129 Referred to orthopedic provider. ALLERGIES Allergen (clinical drug ingredient) Drug/Non Drug Allergy do cumented on EMR Reaction Allergy Type Onset Date Status Salicylic Acid bleeding- Rectal hemmorhag Drug Allergy Active salicylates bleeding Non Drug Allergy Active ENCOUNTERS from 1945 to 2020-06-15 Encounter Location Date Provider Diagnosis [facility] [place] [address] May, Erum Casiano Encounter for gyneco logical examination (general) (routine) without abnormal findings Z01.419 ; Other screening breast examination Z12.39 and Other screening mammogram Z12.31 IMMUNIZATIONS Vaccine Route Administration Date Status Influenza (High Dose 65 & up) Unknown Feb 13, 2018 Ad ministered Pneumococcal (VFC) 0.5mL (Prevnar 13) Unknown December 02 019 Administered Influenza (High Dose 65 & up) Unknown Mar 08, 2016 Ad ministered Influenza (High Dose 65 & up) Unknown Mar 22, 2017 Ad ministered Influenza (6mo & up) Fluzone IM Intramuscular Mar 17, 2009 Ad ministered Zoster 0.65mL (Zostavax) IM Intramuscular May 16, 2012 Admini stered Pneumococcal Adult 0.5mL (Pneumovax 23) Unknown Mar 08, 2016 Administered Pneumococcal Adult 0.5mL (Pneumovax 23) IM Intramuscular Feb 20, 2012 Administered TDAP 0.5mL (Boostrix) IM Intramuscular October 18, 2018 Administe red TDAP 0.5mL (Boostrix) IM Intramuscular November 17, [...] Notes Total Score: 5 Interpretation: Alcohol Education Mormonism: Question Answer Notes Mormonism 21 Alevism Sexual Hx: Question Answer Notes Had sex [...] REASON FOR REFERRAL No Information VITAL SIGNS Weight 168 lbs May, Weight-kg 76.2 kg May, Height 66.5 in May, BMI 26.71 kg/m2 May, Blood pressure systolic 122 mm Hg May, Blood pressure diastolic 72 mm Hg May, MEDICATIONS Medication SIG (Take, Route, Frequency, Duration) Notes Start Da te End Date Status Vitamin D3 2000 UNIT 2 caps Orally once a day Active Lipitor 20 MG 1 tablet Orally three times a week for 90 Active Acyclovir 400 MG 1 tablet Orally Twice a day for 90 Active TraZODone HCl 50 MG 1 tablet at bedtime as neede d Orally Once a day for 90 day(s) May, Active Zoloft 100 MG 1 tablet Orally Once a day for 90 day(s) Active Dicyclomine HCl 10 MG 1 cap orally Every 6 hours a s needed for abdominal pain for 30 Days Active Acidophilus OTC 1 capsule Orally once a day Active Fish Oil 1000 MG 1 capsule Orally once a day Active Multivitamins OTC 1 tab(s) Orally daily Active Imodium A-D 2 MG 1 tablet Orally daily as needed Active PROCEDURES No Information RESULTS No Results REASON FOR VISIT ANNUAL/MAMMO MEDICAL (GENERAL) HISTORY Type Description Date Medical [...] Treatment Notes Treatm ent Clinical Notes May, Encounter for gynecological examination (general) (routine) without abnormal findings (ICD-10 - Z01.419) May, Other screening breast examination (ICD-10 - Z12 .39) May, Other screening mammogram (ICD-10 - Z12.31) PLAN OF TREATMENT Treatment Notes Test Name Order Date [facility] Screening Bilateral (Ultrasound if Indicated ) (3D Mammo) 2020-06-15 Next Appt Details 1 Year Reason:cbe and mammo Provider Name:Conor Solis, 2020-06-15 11:0 0:00 AM, [address] [place] [address], [phone] Provider Name:Demario Juarez, 2020-10-31 03 :30:00 PM, [address] [place] [address], [phone], Follow Up:1 Yearcbe and mammo Insurance Providers Payer Name Payer Address Payer Phone Insured Name Patient Relati onship to Insured Coverage Start Date Coverage End Date MEDICARE COMPLETE UNITED HEALTHCARE [address] [address] [facility] [phone] MALLY EAGLE V self
--- OUTSIDE RECORDS SUMMARY | 2020-06-24 08:06 | CCD ---
Author Author [facility] Organization [facility] Address Unknown Phone Unavailable Care Team Providers Care Commercial Loan Administrator Name Role Phone Conor Solis Unavailable PROBLEMS Type Condition ICD9-CM Code [id number] Code Onset Dates Condition S tatus SNOMED Code Notes Problem Chronic diarrhea K52.9 Active 754546915 I bel ieve her prior evaluation has [...] now subsiding. Problem Cystocele, midline N81.11 Active 963454394 Problem Depression with anxiety F41.8 Active 42521095 6 She is maintained on trazodone and Zoloft and sees a mental health provider and neurologist regularly. She tried tapering off of her medications in late 2013 but did poorly. Her care is being monitored by a psychiatrist. Problem Postmenopausal atrophic vaginitis N95.2 Active 23219608 Problem Hyperlipidemia E78.5 Active 69807684 On Lipit or. Her lipid control meets primary prevention targets as of May 2017. She has a very favorable HDL of 98. She tried stopping her Lipitor in Fall 2013 but her lipid control deteriorated significantly. Problem Cervical radiculopathy M54.12 Active 38867759 Has some tingling in her left trapezius intermittently; recommend shoulder girdle exercises. She mentioned that again in 11/2016, and she felt it related to shoulder disease. Problem Tobacco use disorder Z72.0 Active 51966559 Problem Ocular migraine G43.109 Active 25672807 She has a history of ocular migraine. She had an MRI of her brain in May 2016. Diagnostic testing was also supported by her recent psychologic profile done by her mental health provider. She has documentation of that in her possession. I believe she follows with neurology. Problem Dupuytrens contracture M72.0 Active 941558440 Referred to orthopedics November 2016 and again in February 2019. Problem Herpes simplex type 2 infection B00.9 Active 158506028 She had a significant outbreak with associated erythema multiforme in April 2016. She had an extensive evaluation with dermatology and infectious disease at the time. 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 It was likely related to herpes virus infection. She has been on chronic suppression therapy now with acyclovir 400 mg twice daily. Problem Generalized anxiety disorder F41.1 Active 218 28642 Problem Arthralgia, unspecified joint M25.50 Active 57 086155 She had multiple arthralgias related to herpes simplex outbreak in April 2016 through May 2016. These symptoms seem to have subsided mostly. She still wonders about an autoimmune process but I think she simply has osteoarthritis causing her present level of discomfort in the joints. Problem Menopausal disorder N95.9 Active 548104632 Problem History of Clostridium difficile colitis Z86.19 Active [id number] She has been treated with vancomycin in 10/2018 after she developed C. difficile colitis related to a course of Augmentin in early 10/2018. She had recurrence as of 11/2018 and has had further courses, coordinated by her infectious disease investment consultant. This has apparently resolved. Problem Other hammer toe(s) (acquired), left foot M20.42 Active 35046179 Referred to orthopedic provider. Problem Other hammer toe(s) (acquired), right foot M20.41 Active 698099359 Referred to orthopedic provider. ALLERGIES Allergen (clinical drug ingredient) Drug/Non Drug Allergy do cumented on EMR Reaction Allergy Type Onset Date Status Salicylic Acid bleeding- Rectal hemmorhag Drug Allergy Active salicylates bleeding Non Drug Allergy Active ENCOUNTERS from 1945 to 2020-05-26 Encounter Location Date Provider Diagnosis [address] [address] May, Conor Solis Post-traumatic stress disorder, unspecif ied [...] Notes Total Score: 5 Interpretation: Alcohol Education Anglican: Question Answer Notes Anglican 21 Yazidism Sexual Hx: Question Answer Notes Had sex [...] Treatment Notes Treatm ent Clinical Notes May, Post-traumatic stress disorder, unspecified (ICD -10 - F43.10) May, Generalized anxiety disorder (ICD-10 - F41.1) May, Other Utilized Mindfu lness Based Therapy to role play a radical acceptance technique for decreasing her symptoms of anxiety. Shivani arrived on time for her appointment and actively participated throughout her session. Shivani was responsive to the Mindfulness Based Therapy radical acceptance intervention for decreasing her symptoms of anxiety. Shivani reports that she continues to experience anxiety related to her 's communication style and behaviors in general. Shivani agreed to utilize the technique that we role played and will return for psychotherapy on 06/15/2020. Shivani is aware to call for a soon appointm ent if needed and to utilize the ED for MH emergencies. PLAN OF TREATMENT Medication Medication Name Sig Start Date Stop Date Acyclovir 400 MG 1 tablet Orally Twice a day for 90 Lipitor 20 MG 1 tablet Orally three times a week for 90 Next Appt Details Provider Name:Erum Casiano, 2020-06-07 10:30:00 AM, [address] [place] [address], [phone], Provider Name:Conor Solis, 2020-06-15 11:0 0:00 AM, [address] [place] [address], [phone] Insurance Providers Payer Name Payer Address Payer Phone Insured Name Patient Relati onship to Insured Coverage Start Date Coverage End Date MEDICARE COMPLETE [facility] [address] [address] [facility] [id number] MALLY EAGLE V self
--- OUTSIDE RECORDS SUMMARY | 2020-06-24 08:06 | CCD ---
Author Author [facility] Organization [facility] Address Unknown Phone Unavailable Care Team Providers Care Director [facility] Name Role Phone Conor Solis Unavailable PROBLEMS Type Condition ICD9-CM Code [id number] Code Onset Dates Condition S tatus W/U Status Risk SNOMED Code Notes Problem Chronic diarrhea K52.9 Active confirmed [id number] I believe her prior evaluation has been complete (she [...] now subsiding. Problem Cystocele, midline N81.11 Active confirmed 4 [id number] Problem Depression with anxiety F41.8 Active confirmed [id number] She is maintained on trazodone and Zoloft and sees a mental health provider and neurologist regularly. She tried tapering off of her medications in late 2013 but did poorly. Her care is being monitored by a psychiatrist. Problem Postmenopausal atrophic vaginitis N95.2 Active con firmed [id number] Problem Hyperlipidemia E78.5 Active confirmed 88059 004 On Lipitor. Her lipid control meets primary prevention targets as of December 2019. She has a very favorable HDL of in the 80s and 90s. She tried stopping her Lipitor in Fall 2013 but her lipid control deteriorated significantly. Problem Cervical radiculopathy M54.12 Active confirmed 13133927 Has some tingling in her left trapezius intermittently; recommend shoulder girdle exercises. She mentioned that again in 11/2016, and she felt it related to shoulder disease. Problem Tobacco use disorder Z72.0 Active confirmed 07902240 Problem Ocular migraine G43.109 Active confirmed 956 49109 She has a history of ocular migraine. She had an MRI of her brain in May 2016. Diagnostic testing was also supported by her recent psychologic profile done by her mental health provider. She has documentation of that in her possession. I believe she follows with neurology. Problem Dupuytrens contracture M72.0 Active confirmed [id number] Referred to orthopedics November 2016 and again in February 2019, December 2019. Problem Herpes simplex type 2 infection B00.9 Active confi rmed [id number] She had a significant outbreak with associated erythema multiforme in April 2016. She had an extensive evaluation with dermatology and infectious disease at the time. 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 It was likely related to herpes virus infection. She has been on chronic suppression therapy now with acyclovir 400 mg twice daily. Problem Generalized anxiety disorder F41.1 Active confirme d 73335766 Problem Arthralgia, unspecified joint M25.50 Active confirm ed 81306913 She had multiple arthralgias related to herpes simplex outbreak in April 2016 through May 2016. These symptoms seem to have subsided mostly. She still wonders about an autoimmune process but I think she simply has osteoarthritis causing her present level of discomfort in the joints. Problem Menopausal disorder N95.9 Active confirmed 051146658 Problem History of Clostridium difficile colitis Z86.19 Active confirmed [id number] She has been treated with vancomycin in 10/2018 after she developed C. difficile colitis related to a course of Augmentin in early 10/2018. She had recurrence as of 11/2018 and has had further courses, coordinated by her infectious disease performance management consultant. This has apparently resolved. Problem Other hammer toe(s) (acquired), left foot M20.42 Active confirmed 98771036 Referred to orthopedic provider. Problem Other hammer toe(s) (acquired), right foot M20.41 Active confirmed 893100509 Referred to orthopedic provi julio cesar. ALLERGIES Allergen (clinical drug ingredient) Drug/Non Drug Allergy do cumented on EMR Reaction Allergy Type Onset Date Status Salicylic Acid bleeding- Rectal hemmorhag Drug Allergy Active salicylates bleeding Non Drug Allergy Active ENCOUNTERS from 1945 to 2020-06-20 Encounter Location Date Provider Diagnosis [address] [address] May, Conor Solis Post-traumatic stress disorder, unspecif ied F43.10 and Generalized anxiety disorder F41.1 IMMUNIZATIONS Vaccine Route Administration Date Status TDAP [...] Notes Total Score: 5 Interpretation: Alcohol Education Rastafari: Question Answer Notes Rastafari 21 Orthodox Sexual Hx: Question Answer Notes Had sex [...] disorder (ICD-10 - F41.1) May, Other Utilized CBT to role play a thought reframing technique for decreasing her symptoms of anxiety. Shivani arrived on time for her appointment and actively participated throughout her session. Shivani was responsive to the CBT thought reframing intervention for decreasing her symptoms of anxiety. Shivani reports that she continues to experience anxiety related recent national events. Shivani agreed to utilize the technique that we role played and will return for psychotherapy on 07/13/2020. Shivani is aware to call for a soon appointment if needed and to utilize the ED for MH emergencies. PLAN OF TREATMENT Next Appt Details Provider Name:Conor Solis, 2020-07-13 11:0 0:00 AM, [address] [place], [address] Provider Name:Demario Juarez, 2020-10-31 03 :30:00 PM, [address] [place], [address], Insurance Providers Payer Name Payer Address Payer Phone Insured Name Patient Relati onship to Insured Coverage Start Date Coverage End Date MEDICARE COMPLETE [facility] [address] [address] [facility] [id number] MALLY EAGLE
--- OUTSIDE RECORDS SUMMARY | 2020-06-24 08:07 | CCD ---
Author Author [facility] Organization [facility] Address Unknown Phone Unavailable Care Team Providers Care Patch Setter Name Role Phone Conor Solis Unavailable PROBLEMS Type Condition ICD9-CM Code [id number] Code Onset Dates Condition S tatus SNOMED Code Notes Problem Chronic diarrhea K52.9 Active [id number] I bel ieve her prior evaluation has [...] now subsiding. Problem Cystocele, midline N81.11 Active 481342712 Problem Depression with anxiety F41.8 Active 61414538 6 She is maintained on trazodone and Zoloft and sees a mental health provider and neurologist regularly. She tried tapering off of her medications in late 2013 but did poorly. Her care is being monitored by a psychiatrist. Problem Postmenopausal atrophic vaginitis N95.2 Active 10752252 Problem Hyperlipidemia E78.5 Active 75959846 On Lipit or. Her lipid control meets primary prevention targets as of May 2017. She has a very favorable HDL of 98. She tried stopping her Lipitor in Fall 2013 but her lipid control deteriorated significantly. Problem Cervical radiculopathy M54.12 Active 32225352 Has some tingling in her left trapezius intermittently; recommend shoulder girdle exercises. She mentioned that again in 11/2016, and she felt it related to shoulder disease. Problem Tobacco use disorder Z72.0 Active 84490157 Problem Ocular migraine G43.109 Active 72450811 She has a history of ocular migraine. She had an MRI of her brain in May 2016. Diagnostic testing was also supported by her recent psychologic profile done by her mental health provider. She has documentation of that in her possession. I believe she follows with neurology. Problem Dupuytrens contracture M72.0 Active 758622044 Referred to orthopedics November 2016 and again in February 2019. 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 She had an extensive evaluation with dermatology and infectious disease at the time. 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 It was likely related to herpes virus infection. She has been on chronic suppression therapy now with acyclovir 400 mg twice daily. Problem Generalized anxiety disorder F41.1 Active 218 14711 Problem Arthralgia, unspecified joint M25.50 Active 57 386258 She had multiple arthralgias related to herpes simplex outbreak in April 2016 through May 2016. These symptoms seem to have subsided mostly. She still wonders about an autoimmune process but I think she simply has osteoarthritis causing her present level of discomfort in the joints. Problem Menopausal disorder N95.9 Active 673296294 Problem History of Clostridium difficile colitis Z86.19 Active [id number] She has been treated with vancomycin in 10/2018 after she developed C. difficile colitis related to a course of Augmentin in early 10/2018. She had recurrence as of 11/2018 and has had further courses, coordinated by her infectious disease information consultant. This has apparently resolved. Problem Other hammer toe(s) (acquired), left foot M20.42 Active 23173196 Referred to orthopedic provider. Problem Other hammer toe(s) (acquired), right foot M20.41 Active 284641024 Referred to orthopedic provider. ALLERGIES Allergen (clinical drug ingredient) Drug/Non Drug Allergy do cumented on EMR Reaction Allergy Type Onset Date Status Salicylic Acid bleeding- Rectal hemmorhag Drug Allergy Active salicylates bleeding Non Drug Allergy Active ENCOUNTERS from 1945 to 2020-04-05 Encounter Location Date Provider Diagnosis [address] [address] 17 Mar, 2020 Conor Solis Post-traumatic stress disorder, unspecif [...] Education Mormonism: Question Answer Notes Mormonism 21 Latter Day Sexual Hx: Question Answer Notes Had sex [...] Multivitamins OTC 1 tab(s) Orally daily Active Zoloft 100 MG 1 tablet Orally Once a day for 90 day(s) Active Acyclovir 400 MG 1 tablet Orally Twice a day for 90 day(s) Active Fish Oil 1000 MG 1 capsule Orally once a day Active Vitamin D3 2000 UNIT 2 caps Orally once a day Active Dicyclomine HCl 10 MG 1 cap orally Every 6 hours a s needed for abdominal pain for 30 Days Active Acidophilus OTC 1 capsule Orally once a day Active TraZODone HCl 50 MG 1 tablet at bedtime as neede d Orally Once a day for 90 day(s) May, Active Lipitor 20 MG 1 tablet Orally three times a week for 90 Active Imodium A-D 2 MG 1 tablet [...] Notes Treatment Notes Treatm ent Clinical Notes Mar, Post-traumatic stress disorder, unspecified (ICD -10 - F43.10) Mar, Generalized anxiety disorder (ICD-10 - F41.1) Mar, Other Utilized CBT to role play a thought reframing technique for decreasing her symptoms of anxiety. Shivani arrived on time for her appointment and actively participated in the development of her initial treaatment plan. Shivani was responsive to the CBT thought reframing intervention for decreasing her symptoms of anxiety. Shivani reports that she has been experiencing anxiety related to her and her wish for him to be more physically active. Shivani agreed to utilize the technique that we role played and will return for psychotherapy on 04/19/2020. Shivani is aware to call for a soon appointment if needed and to utilize the ED for MH emergencies. PLAN OF TREATMENT Medication Medication Name Sig Start Date Stop Date Lipitor 20 MG 1 tablet Orally three times a week for 90 Next Appt Details Provider Name:Conor Solis, 2020-04-19 01:0 0:00 PM, [address] [place], [address] Provider Name:Erumgautam Casiano, 2020-06-07 10:30:00 AM, [address] [place] [address], [phone], Insurance Providers Payer Name Payer Address Payer Phone Insured Name Patient Relati onship to Insured Coverage Start Date Coverage End Date MEDICARE COMPLETE [facility] [address] [address] [facility] [id number] MALLY EAGLE
--- OUTSIDE RECORDS SUMMARY | 2020-06-24 08:07 | CCD ---
Author Author [facility] Organization [facility] Address Unknown Phone Unavailable Care Team Providers Care Lace Stripper Name Role Phone SHERIF, B DEEJAY BENITEZ Unavailable Unavailable SHERIF, B DEEJAY BENITEZ Unavailable Unavailable SHERIF, B DEEJAY BENITEZ Unavailable Unavailable SHERIF, B DEEJAY BENITEZ Unavailable Unavailable SHERIF, B DEEJAY BENITEZ Unavailable Unavailable SHERIF, B DEEJAY BENITEZ Unavailable Unavailable SHERIF, B DEEJAY BENITEZ Unavailable Unavailable SHERIF, B DEEJAY BENITEZ Unavailable Unavailable SHERIF, B DEEJAY BENITEZ Unavailable Unavailable SHERIF, B DEEJAY BENITEZ Unavailable Unavailable SHERIF, B DEEJAY BENITEZ Unavailable Unavailable SHERIF, B DEEJAY BENITEZ Unavailable Unavailable SHERIF, B DEEJAY BENITEZ Unavailable Unavailable SHERIF, B DEEJAY BENITEZ Unavailable Unavailable SHERIF, B DEEJAY BENITEZ Unavailable Unavailable SHERIF, B DEEJAY BENITEZ Unavailable Unavailable SHERIF, B DEEJAY BENITEZ Unavailable Unavailable SHERIF, B DEEJAY BENITEZ Unavailable Unavailable SHERIF, B DEEJAY BENITEZ Unavailable Unavailable SHERIF, B DEEJAY BENITEZ Unavailable Unavailable SHERIF, B DEEJAY BENITEZ Unavailable Unavailable SHERIF, B DEEJAY BENITEZ Unavailable Unavailable SHERIF, B DEEJAY BENITEZ Unavailable Unavailable SHERIF, B DEEJAY BENITEZ Unavailable Unavailable SHERIF, B DEEJAY BENITEZ Unavailable Unavailable SHERIF, B DEEJAY BENITEZ Unavailable Unavailable SHERIF, B DEEJAY BENITEZ Unavailable Unavailable SHERIF, B DEEJAY BENITEZ Unavailable Unavailable SHERIF, Junie VILLALBA MD Unavailable Unavailable SHERIF, Junie VILLALBA MD Unavailable Unavailable SHERIF, Junie VILLALBA MD Unavailable Unavailable SHERIF, Junie VILLALBA MD Unavailable Unavailable SHERIF, Junie VILLALBA MD Unavailable Unavailable SHERIF, Junie VILLALBA MD Unavailable Unavailable SHERIF, Junie VILLALBA MD Unavailable Unavailable SHERIF, Junie VILLALBA MD Unavailable Unavailable SHERIF, Junie VILLALBA MD Unavailable Unavailable SHERIF, Junie VILLALBA MD Unavailable Unavailable SHERIF, Junie VILLALBA MD Unavailable Unavailable SHERIF, Junie VILLALBA MD Unavailable Unavailable SHERIF, Junie VILLALBA MD Unavailable Unavailable SHERIF, Junie VILLALBA MD Unavailable Unavailable SHERIF, Junie VILLALBA MD Unavailable Unavailable SHERIF, Junie VILLALBA MD Unavailable Unavailable SHERIF, Junie VILLALBA MD Unavailable Unavailable SHERIF, Junie VILLALBA MD Unavailable Unavailable SHERIF, Junie VILLALBA MD Unavailable Unavailable SHERIF, Junie VILLALBA MD Unavailable Unavailable SHERIF, Junie VILLALBA MD Unavailable Unavailable SHERIF, Junie VILLALBA MD Unavailable Unavailable SHERIF, Junie VILLALBA MD Unavailable Unavailable SHERIF, Junie VILLALBA MD Unavailable Unavailable SHERIF, Junie VILLALBA MD Unavailable Unavailable SHERIF, Junie VILLALBA MD Unavailable Unavailable SHERIF, Junie VILLALBA MD Unavailable Unavailable SHERIF, Junie VILLALBA MD Unavailable Unavailable SHERIF, Junie VLILALBA MD Unavailable Unavailable SHERIF, Junie VILLALBA MD Unavailable Unavailable SHERIF, Junie VILLALBA MD Unavailable Unavailable SHERIF, Junie VILLALBA MD Unavailable Unavailable SHERIF, Junie VILLALBA MD Unavailable Unavailable SHERIF, Junie VILLALBA MD Unavailable Unavailable SHERIF, Junie VILLALBA MD Unavailable Unavailable SHERIF, Junie VILLALBA MD Unavailable Unavailable SHERIF, Junie VILLALBA MD Unavailable Unavailable SHERIF, Junie VILLALBA MD Unavailable Unavailable SHERIF, Junie VILLALBA MD Unavailable Unavailable SHERIF, Junie VILLALBA MD Unavailable Unavailable SHERIF, Junie VILLALBA MD Unavailable Unavailable SHERIF, Junie VILLALBA MD Unavailable Unavailable SHERIF, Junie VILLALBA MD Unavailable Unavailable SHERIF, Junie VILLALBA MD Unavailable Unavailable SHERIF, Junie VILLALBA MD Unavailable Unavailable SHERIF, Junie VILLALBA MD Unavailable Unavailable SHERIF, Junie VILLALBA MD Unavailable Unavailable SHERIF, Junei VILLALBA MD Unavailable Unavailable SHERIF, Junie VILLALBA MD Unavailable Unavailable SHERIF, Junie VILLALBA MD Unavailable Unavailable Junie GORMAN MD Unavailable Unavailable Junie GORMAN MD Unavailable Unavailable Junie GORMAN MD Unavailable Unavailable Junie GORMAN MD Unavailable Unavailable Junie GORMAN MD Unavailable Unavailable Junie GORMAN MD Unavailable Unavailable Demario Juarez MD Unavailable Unavailable Demario Juarez MD Unavailable Unavailable Demario Juarez MD Unavailable Unavailable Demario Juarez MD Unavailable Unavailable Demario Juarez MD Unavailable Unavailable Demario Juarez MD Unavailable Unavailable Demario Juarez MD Unavailable Unavailable Demario Juarez MD Unavailable Unavailable Demario Juarez MD Unavailable Unavailable Demario Juarez MD Unavailable Unavailable Demario Juarez MD Unavailable Unavailable Demario Juarez MD Unavailable Unavailable Demario Juarez MD Unavailable Unavailable Demario Juarez MD Unavailable Unavailable Demario Juarez MD Unavailable Unavailable Demario Juarez MD Unavailable Unavailable Demario Juarez MD Unavailable Unavailable Demario Juarez MD Unavailable Unavailable Demario Juarez MD Unavailable Unavailable Demario Juarez MD Unavailable Unavailable Demario Juarez MD Unavailable Unavailable Demario Juarez MD Unavailable Unavailable Demario Juarez MD Unavailable Unavailable Demario Juarez MD Unavailable Unavailable Demario Juarez MD Unavailable Unavailable Demario Juarez MD Unavailable Unavailable Demario Juarez MD Unavailable Unavailable Demario Juarez MD Unavailable Unavailable Demario Juarez MD Unavailable Unavailable Demario Juarez MD Unavailable Unavailable Demario Juarez MD Unavailable Unavailable Demario Juarez MD Unavailable Unavailable Demario Juarez MD Unavailable Unavailable Demario Juarez MD Unavailable Unavailable Demario Juarez MD Unavailable Unavailable Demario Juarez MD Unavailable Unavailable Demario Juarez MD Unavailable Unavailable Demario Juarez MD Unavailable Unavailable Demario Juarez MD Unavailable Unavailable Demario Juarez MD Unavailable Unavailable Demario Juarez MD Unavailable Unavailable Demario Juarez MD Unavailable Unavailable Demario Juarez MD Unavailable Unavailable Demario Juarez MD Unavailable Unavailable Demario Juarez MD Unavailable Unavailable Demario Juarez MD Unavailable Unavailable Demario Juarez MD Unavailable Unavailable Demario Juarez MD Unavailable Unavailable Demario Juarez MD Unavailable Unavailable Demario Juarez MD Unavailable Unavailable Demario Juarez MD Unavailable Unavailable Demario Juarez MD Unavailable Unavailable Demario Juarez MD Unavailable Unavailable Demario Juarez MD Unavailable Unavailable Demario Juarez MD Unavailable Unavailable Demario Juarez MD Unavailable Unavailable Demario Juarez MD Unavailable Unavailable Demario Juarez MD Unavailable Unavailable Demario Juarez MD Unavailable Unavailable Demario Juarez MD Unavailable Unavailable Demario Juarze MD Unavailable Unavailable Larry, Demario MD Unavailable Unavailable Demario Juarez MD Unavailable Unavailable Demario Juarez MD Unavailable Unavailable Demario Juarez MD Unavailable Unavailable Demario Juarez MD Unavailable Unavailable Demario Juarez MD Unavailable Unavailable Demario Juarez MD Unavailable Unavailable Demario Juarez MD Unavailable Unavailable Demario Juarez MD Unavailable Unavailable Demario Juarez MD Unavailable Unavailable Demario Juarez MD Unavailable Unavailable Re-disclosure Warning The records that you are about to access may contain information from federally-assisted alcohol or drug abuse programs. If such information is present, then the following federally mandated warning applies: This information has been disclosed to you from records protected by federal confidentiality rules (42 CFR part 2). The federal rules prohibit you from making any further disclosure of this information unless further disclosure is expressly permitted by the written consent of the person to whom it pertains or as otherwise permitted by 42 CFR part 2. A general authorization for the release of medical or other information is NOT sufficient for this purpose. The Federal rules restrict any use of the information to criminally investigate or prosecute any alcohol or drug abuse patient.The records that you are about to access may contain highly sensitive health information, the redisclosure of which is protected by Article 27-F of the [place] [facility] law. If you continue you may have access to information: Regarding HIV / AIDS; Provided by facilities licensed or operated by the [place] [facility] Office of Mental Health; or Provided by the [facility] Office for People With Developmental Disabilities. If such information is present, then the following [facility] mandated warning applies: This information has been disclosed to you from confidential records which are protected by state law. State law prohibits you from making any further disclosure of this information without the specific written consent of the person to whom it pertains, or as otherwise permitted by law. Any unauthorized further disclosure in violation of state law may result in a fine or prison sentence or both. A general authorization for the release of medical or other information is NOT sufficient authorization for further disc losure. Allergies and Adverse Reactions Type Description Substance Reaction Status Data Source(s ) salicylates salicylates salicylates bleeding Active eCW1 ([facility]) Drug allergy Salicylic Acid Salicylic Acid bleeding- Rectal hemmorhag Active eCW1 ([facility]) Family History Family Member Name Family Member Gender Family Member Status Date o f Status Description Data Source(s) Unknown Male Problem MEDENT ([facility]) Unknown Unknown Problem MEDENT ([facility]) Encounters Encounter Providers Location Date Indications Data Source(s ) ([facility]) [facility] Scheduled Visit [address] [place] [address] 06/15/2020 12:00:00 AM EST eCW1 (Critical access hospital) ( [place]) [facility] Yearly PAEDIATRIC PHYSIOTHERAPIST Exam [address] 06/07/2020 12:00:00 AM EST eCW1 (Critical access hospital) Unknown [address] [facility] [address] 05/30/2020 12:00:00 AM EST eCW1 ([facility]) ([facility]) [facility] Scheduled Visit [address] [place], [place] [id number] 05/25/2020 12:00:00 AM EST eCW1 (Critical access hospital) ([facility]) [facility] Scheduled Visit [address] 05/04/2020 12:00:00 AM EST eCW1 (Critical access hospital) ([facility]) [facility] Scheduled Visit [address] [place], [place] [id number] 04/19/2020 12:00:00 AM EST eCW1 (Critical access hospital) ([facility]) [facility] Scheduled Visit [address] [place], [place] [phone] 04/05/2020 12:00:00 AM EST eCW1 (Critical access hospital) ([facility]) [facility] Scheduled Visit [address] [place], [place] [id number] 03/22/2020 12:00:00 AM EST eCW1 (Critical access hospital) ([facility]) [facility] Scheduled Visit [address] [place], [place] [phone] 03/02/2020 12:00:00 AM EDT eCW1 (Critical access hospital) Outpatient Attender: DEEJAY GORMAN MDReferrer: Demario Juarez MD 02/26/2020 12:00:00 AM [facility] [address] [place] [address] 09/29/2019 12:00:00 AM EDT eCW1 ([facility]) [address] [address] 06/26/2019 12:00:00 AM EST eCW1 ([facility]) [address] [address] 06/26/2019 12:00:00 AM EST eCW1 ([facility]) [address] [address] 06/25/2019 12:00:00 AM EST eCW1 ([facility]) [address] [address] 06/24/2019 12:00:00 AM EST eCW1 ([facility]) [address] [address] 06/24/2019 12:00:00 AM EST eCW1 ([facility]) [address] [address] 06/24/2019 12:00:00 AM EST eCW1 ([facility]) [address] [address] 06/22/2019 12:00:00 AM EST eCW1 ([facility]) [address] [address] 06/02/2019 12:00:00 AM EST eCW1 ([facility]) [address] [place] [address] 05/26/2019 12:00:00 AM EST eCW1 ([facility]) [address] [place] [address] 05/08/2019 12:00:00 AM EST eCW1 ([facility]) Immunizations Vaccine Date Status Description Data Source(s) INFLUENZA VIRUS VACCINE QUADRIVAL SPLIT 2019-(65 YR UP)/PF 03/03/2020 12:00:00 AM EDT completed [facility] Medications Medication Brand Name Start Date Product Form Dose Route Admi nistrative Instructions Pharmacy Instructions Status Indications Reaction Description Data Source(s) Acyclovir 400 MG Oral Tablet ACYCLOVIR 05/12/2020 12:00:00 AM EST tabl et 180 TAKE ONE TABLET BY MOUTH TWICE A DAY TAKE ONE TABLET BY MOUTH TWICE A DAY SOLD: 05/12/2020 [facility] 17 gram/dose 04/27/2020 12:00:00 AM EST powder 510 USE DIRECTED USE DIRECTED SOLD: 04/27/2020 [facility] MAGNESIUM CITRATE 04/27/2020 12:00:00 AM EST solution 296 USE FOR ADDITIONAL PREP AT 2-3 DAYS BEFORE PROCEDURE USE FOR ADDITIONAL PREP AT 2-3 DAYS BEFO RE PROCEDURE SOLD: 04/27/2020 [facility] atorvastatin 20 MG Oral Tablet ATORVASTATIN CALCIUM 03/07/2020 1 2:00:00 AM EDT tablet 36 TAKE ONE TABLET BY MOUTH THREE T IMES A WEEK TAKE ONE TABLET BY MOUTH THREE TIMES A WEEK SOLD: 03/07/2020 [facility] 100 mg 12/04/2019 12:00:00 AM EDT tablet 90 TAKE 1 TABLET BY MOUTH ONCE A DAY TAKE 1 TABLET BY MOUTH ONCE A DAY SOLD: 05/31/2020 [facility] 100 mg 12/04/2019 12:00:00 AM EDT tablet 90 TAKE 1 TABLET BY MOUTH ONCE A DAY TAKE 1 TABLET BY MOUTH ONCE A DAY SOLD: 12/08/2019 [facility] 100 mg 12/04/2019 12:00:00 AM EDT tablet 90 TAKE 1 TABLET BY MOUTH ONCE A DAY TAKE 1 TABLET BY MOUTH ONCE A DAY SOLD: 03/03/2020 [facility] atorvastatin 20 MG Oral Tablet ATORVASTATIN CALCIUM 06/22/2019 1 2:00:00 AM EST tablet 36 TAKE ONE TABLET BY MOUTH THREE T IMES A WEEK TAKE ONE TABLET BY MOUTH THREE TIMES A WEEK SOLD: 06/23/2019 [facility] atorvastatin 20 MG Oral Tablet ATORVASTATIN CALCIUM 06/22/2019 1 2:00:00 AM EST tablet 36 TAKE ONE TABLET BY MOUTH THREE T IMES A WEEK TAKE ONE TABLET BY MOUTH THREE TIMES A WEEK SOLD: 09/26/2019 [facility] 40 mg 06/17/2019 12:00:00 AM EST tablet 36 TAKE ONE TABLET BY MOUTH THREE TIMES A WEEK TAKE ONE TABLET BY MOUTH THREE TIMES A WEEK SOLD: 06/20/2019 [facility] 50 mg 06/17/2019 12:00:00 AM EST tablet 90 TAKE 1 TABLET BY MOUTH ONCE AT BEDTIME TAKE 1 TABLET BY MOUTH ONCE AT BEDTIME SOLD: 06/11/2020 [facility] 50 mg 06/17/2019 12:00:00 AM EST tablet 90 TAKE 1 TABLET BY MOUTH ONCE AT BEDTIME TAKE 1 TABLET BY MOUTH ONCE AT BEDTIME SOLD: 09/26/2019 [facility] 50 mg 06/17/2019 12:00:00 AM EST tablet 90 TAKE 1 TABLET BY MOUTH ONCE AT BEDTIME TAKE 1 TABLET BY MOUTH ONCE AT BEDTIME SOLD: 06/20/2019 [facility] 50 mg 06/17/2019 12:00:00 AM EST tablet 90 TAKE 1 TABLET BY MOUTH ONCE AT BEDTIME TAKE 1 TABLET BY MOUTH ONCE AT BEDTIME SOLD: 12/24/2019 [facility] Trazodone Hydrochloride 50 MG Oral Tablet TraZODone HC l 50 MG TraZODone HCl 50 MG 05/26/2019 12:00:00 AM EST 1.0 {tablet_at_bedtime_as_needed} active TraZODone HCl 50 MG eCW1 ([facility]) Trazodone Hydrochloride 50 MG Oral Tablet TraZODone HC l 50 MG TraZODone HCl 50 MG 05/26/2019 12:00:00 AM EST 1.0 {tablet_at_bedtime_as_needed} active TraZODone HCl 50 MG eCW1 ([facility]) Trazodone Hydrochloride 50 MG Oral Tablet TraZODone HC l 50 MG TraZODone HCl 50 MG 05/26/2019 12:00:00 AM EST 1.0 {tablet_at_bedtime_as_needed} active TraZODone HCl 50 MG eCW1 ([facility]) Trazodone Hydrochloride 50 MG Oral Tablet TraZODone HC l 50 MG TraZODone HCl 50 MG 05/26/2019 12:00:00 AM EST 1.0 {tablet_at_bedtime_as_needed} active TraZODone HCl 50 MG eCW1 ([facility]) Trazodone Hydrochloride 50 MG Oral Tablet TraZODone HC l 50 MG TraZODone HCl 50 MG 05/26/2019 12:00:00 AM EST active 1 tablet at bedtime as needed eCW1 ([facility]) Trazodone Hydrochloride 50 MG Oral Tablet TraZODone HC l 50 MG TraZODone HCl 50 MG 05/26/2019 12:00:00 AM EST 1.0 {tablet_at_bedtime_as_needed} active TraZODone HCl 50 MG eCW1 ([facility]) Trazodone Hydrochloride 50 MG Oral Tablet TraZODone HC l 50 MG TraZODone HCl 50 MG 05/26/2019 12:00:00 AM EST 1.0 {tablet_at_bedtime_as_needed} active TraZODone HCl 50 MG eCW1 ([facility]) Trazodone Hydrochloride 50 MG Oral Tablet TraZODone HC l 50 MG TraZODone HCl 50 MG 05/26/2019 12:00:00 AM EST 1.0 {tablet_at_bedtime_as_needed} active TraZODone HCl 50 MG eCW1 ([facility]) Trazodone Hydrochloride 50 MG Oral Tablet TraZODone HC l 50 MG TraZODone HCl 50 MG 05/26/2019 12:00:00 AM EST 1.0 {tablet_at_bedtime_as_needed} active TraZODone HCl 50 MG eCW1 ([facility]) Trazodone Hydrochloride 50 MG Oral Tablet TraZODone HC l 50 MG TraZODone HCl 50 MG 05/26/2019 12:00:00 AM EST active 1 tablet at bedtime as needed eCW1 ([facility]) Trazodone Hydrochloride 50 MG Oral Tablet TraZODone HC l 50 MG TraZODone HCl 50 MG 05/26/2019 12:00:00 AM EST 1.0 {tablet_at_bedtime_as_needed} active TraZODone HCl 50 MG eCW1 ([facility]) 400 mg 05/08/2019 12:00:00 AM EST tablet 180 TAKE ONE TABLET BY MOUTH TWICE A DAY TAKE ONE TABLET BY MOUTH TWICE A DAY SOLD: 11/12/2019 [facility] Acyclovir 400 MG Oral Tablet ACYCLOVIR 05/08/2019 12:00:00 AM EST tabl et 180 TAKE ONE TABLET BY MOUTH TWICE A DAY TAKE ONE TABLET BY MOUTH TWICE A DAY SOLD: 02/15/2020 [facility] 400 mg 05/08/2019 12:00:00 AM EST tablet 180 TAKE ONE TABLET BY MOUTH TWICE A DAY TAKE ONE TABLET BY MOUTH TWICE A DAY SOLD: 05/18/2019 [facility] 10 mg 03/31/2019 12:00:00 AM EST capsule 100 TAKE ONE CAPSULE BY MOUTH EVERY 6 HOURS NEEDED ABDOMINAL PAIN TAKE ONE CAPSULE BY MOUTH EVERY 6 HOURS NEEDED ABDOMINAL PAIN SOLD: 06/17/2019 [facility] 100 mg 10/18/2018 12:00:00 AM EDT tablet 90 TAKE ONE TABLET BY MOUTH EVERY DAY TAKE ONE TABLET BY MOUTH EVERY DAY SOLD: 05/26/2019 [facility] Insurance Providers Payer name Policy type / Coverage type Policy ID Covered republican ID Covered republican's relationship to tatum Policy Tatum Plan Information MEDICARE COMPLETE [id number] SP [id number] [facility] [id number] S [id number] SELF PAY ONLY MEDICARE COMPLETE [id number] SP [id number] SELF PAY ONLY [id number] SP [id number] MEDICARE COMPLETE [id number] SP [id number] UHC UNITED MEDICARE COMPLETE G [id number] [facility] [id number] [facility] [id number] ANSMedicare Part B [id number] ANSMedicare Part B [id number] [facility]-Medicare Part B [id number] ANSI-Medicare Part B [id number] ANSI-Medicare Part B [id number] ANSI-Medicare Part B [id number] ANSI-Medicare Part B [id number] ANSI-Medicare Part B [id number] ANSI-Medicare Part B [id number] ANSI-Medicare Part B [id number] ANSI-Medicare Part B [id number] [facility] ([facility]) Commercial [id number] Self [id number] [employer] Workers Compensation [id number] Self [id number] ANSI-Medicare Part B [id number] ANSI-Medicare Part B [id number] [facility] ([facility]) Commercial [id number] Self [id number] ANSI-Medicare Part B [id number] ANSI-Medicare Part B [id number] ANSI-Medicare Part B [id number] [facility] [place] [id number] 18 [id number] MEDICARE COMPLETE [id number] SP [id number] [facility] MD[place] [id number] 18 [id number] [facility] [place] [id number] 18 [id number] [facility] [place] [id number] 18 [id number] [facility] ([facility]) Commercial [id number] Self [id number] [facility] ([facility]) Commercial [id number] Self [id number] [facility]/Medicare Solu Commercial Self [employer] [facility] MEDICARE -O/P [id number] 18 [id number] [facility] -O/P [id number] 18 [id number] [facility] -[facility]/P [id number] 18 [id number] [facility] -[facility]/P [id number] 18 [id number] UNK UNK Problems, Conditions, and Diagnoses Code Display Name Description Problem Type Effective Dates Data Source(s) F41.1 [id number] Generalized anxiety disorder Problem 12:00:00 AM EDT eCW1 ([facility]) F43.10 [id number] Post-traumatic stress disorder, unspecifi ed Problem 03/03/2020 12:00:00 AM EDT eCW1 ([facility]) N95.9 [id number] Menopausal disorder Problem 06/02/2019 12:00 :00 AM EST eCW1 ([facility]) N95.9 [id number] Menopausal disorder Problem 06/02/2019 12:00 :00 AM EST eCW1 ([facility]) Surgeries/Procedures Procedure Description Date Indications Data Source(s) Cervical or vaginal cancer screening; pelvic and clinical br east examination 06/02/2019 12:00:00 AM EST eCW1 ([facility]) MANIPLATN PALAR FASCIAL CRD POST INJ SINGLE CORD 05/07 12:00:00 AM EST MEDENT ([facility]) INJECTION ENZYME PALMAR FASCIAL CORD 05/05/2019 12:00: 00 AM EST MEDENT ([facility]) Results ID Date Data Source [id number] 06/19/2020 08:20:00 AM EST [facility] Name Value Range Interpretation Code Description Data Teresa rce(s) Supporting Document(s) SARS coronavirus 2 RNA Not Detected [facility] This lab was ordered by [facility] and reported by [facility]. ID Date Data Source [id number] 05/09/2020 12:00:00 AM EST [facility] Name Value Range Interpretation Code Description Data Teresa rce(s) Supporting Document(s) SARS-CoV-2 (COVID-19) RNA [Presence] in Respiratory specimen by JOLEEN with probe detection [facility] This lab was ordered by [facility] and reported by [facility] ID Date Data Source [id number] 04/09/2020 12:00:00 AM EST [facility] Name Value Range Interpretation Code Description Data Teresa rce(s) Supporting Document(s) 2019-nCoV RNA XXX JOLEEN+probe-Imp [facility] This lab was ordered by [facility] and reported by [facility] ID Date Data Source [id number] 03/08/2020 11:00:00 AM EDT [facility] Name Value Range Interpretation Code Description Data Teresa rce(s) Supporting Document(s) SARS coronavirus 2 RNA [facility] This lab was ordered by [facility] and reported by [facility]. ID Date Data Source [id number] 09/24/2019 12:50:00 PM EDT [facility] Name Value Range Interpretation Code Description Data Teresa rce(s) Supporting Document(s) SARS CORONAVIRUS 2 RNA [facility] This lab was ordered by [facility] and reported by [facility]. Procedure Social History Code Duration Value Status Description Data Source(s ) Smoking 06/07/2020 12:00:00 AM EST Former Smoker completed Former Smoker eCW1 ([facility]) Smoking 06/07/2020 12:00:00 AM EST Former Smoker completed Former Smoker eCW1 ([facility]) Smoking 05/30/2020 12:00:00 AM EST Former Smoker completed Former Smoker [facility]1 [facility] Health) Smoking 06/02/2019 12:00:00 AM EST Former Smoker completed Former Smoker eCW1 ([facility]) Smoking 06/02/2019 12:00:00 AM EST Former Smoker completed Former Smoker eCW1 ([facility]) Smoking 06/02/2019 12:00:00 AM EST Former Smoker completed Former Smoker eCW1 ([facility]) Smoking 06/02/2019 12:00:00 AM EST Former Smoker completed Former Smoker eCW1 ([facility]) Smoking 06/02/2019 12:00:00 AM EST Former Smoker completed Former Smoker eCW1 ([facility]) Smoking 06/02/2019 12:00:00 AM EST Former Smoker completed Former Smoker eCW1 ([facility]) Vital Signs ID Date Data Source UNK Name Value Range Interpretation Code Description Data Source(s) Body height 66.5 [in_i] 66.5 [in_i] eCW1 ([facility]) Body weight 76.2 kg 76.2 kg [facility]CW[facility] Body weight 168 [lb_av] 168 [lb_av] eCW1 ([facility]) Diastolic blood pressure 72 mm[Hg] 72 mm[Hg] eCW1 ([facility]) Systolic blood pressure 122 mm[Hg] 122 mm[Hg] e CW1 ([facility]) Body mass index (BMI) [Ratio] 26.71 kg/m2 26.71 kg/m2 eCW1 ([facility]) Body weight 70.308 kg 70.308 kg [facility] ([facility]) [place] body weight 140 [lb_av] 140 [lb_av] MEDEN T ([facility]) Body mass index (BMI) [Ratio] 23.6 kg/m2 23.6 k g/m2 [facility] ([facility]) Body weight 155.00 [lb_av] 155.00 [lb_av] MEDEN T ([facility]) Body height 68 [in_i] 68 [in_i] [facility] ([facility]) 5'8" Body weight 69.401 kg 69.401 kg [facility] ([facility]) [place] body weight 140 [lb_av] 140 [lb_av] MEDEN T ([facility]) Body mass index (BMI) [Ratio] 23.3 kg/m2 23.3 k g/m2 [facility] ([facility]) Body weight 153.00 [lb_av] 153.00 [lb_av] MEDEN T ([facility]) Body height 68 [in_i] 68 [in_i] [facility] ([facility]) 5'8" Diastolic blood pressure 61 mm[Hg] 61 mm[Hg] [facility] ([facility]) Systolic blood pressure 114 mm[Hg] 114 mm[Hg] M EDENT ([facility]) Diastolic blood pressure 66 mm[Hg] 66 mm[Hg] eCW1 ([facility]) Systolic blood pressure 116 mm[Hg] 116 mm[Hg] e CW1 ([facility]) Body mass index (BMI) [Ratio] 24.48 kg/m2 24.48 kg/m2 W1 ([facility]) Body height 66.5 [in_us] 66.5 [in_us] eCW1 ([facility]) Body weight Measured 154 [lb_av] 154 [lb_av] eC W1 ([facility]) Patient Treatment Plan of Care Planned Activity Planned Date Details Description Data Source (s) Trazodone Hydrochloride 50 MG Oral Tablet 05/26/2019 12:00:00 AM ES T eCW1 ([facility])
--- OUTSIDE RECORDS SUMMARY | 2020-06-24 08:07 | CCD ---
Author Author [facility] Organization [facility] Address Unknown Phone Unavailable Care Team Providers Care Psychiatric Tech Name Role Phone Conor Solis Unavailable PROBLEMS Type Condition ICD9-CM Code [id number] Code Onset Dates Condition S tatus SNOMED Code Notes Problem Chronic diarrhea K52.9 Active [id number] I bel ieve her prior evaluation has [...] now subsiding. Problem Cystocele, midline N81.11 Active 268309820 Problem Depression with anxiety F41.8 Active 30552362 6 She is maintained on trazodone and Zoloft and sees a mental health provider and neurologist regularly. She tried tapering off of her medications in late 2013 but did poorly. Her care is being monitored by a psychiatrist. Problem Postmenopausal atrophic vaginitis N95.2 Active 06200373 Problem Hyperlipidemia E78.5 Active 44278434 On Lipit or. Her lipid control meets primary prevention targets as of May 2017. She has a very favorable HDL of 98. She tried stopping her Lipitor in Fall 2013 but her lipid control deteriorated significantly. Problem Cervical radiculopathy M54.12 Active 98845482 Has some tingling in her left trapezius intermittently; recommend shoulder girdle exercises. She mentioned that again in 11/2016, and she felt it related to shoulder disease. Problem Tobacco use disorder Z72.0 Active 31444549 Problem Ocular migraine G43.109 Active 63141560 She has a history of ocular migraine. She had an MRI of her brain in May 2016. Diagnostic testing was also supported by her recent psychologic profile done by her mental health provider. She has documentation of that in her possession. I believe she follows with neurology. Problem Dupuytrens contracture M72.0 Active [id number] Referred to orthopedics November 2016 and again in February 2019. Problem Herpes simplex type 2 infection B00.9 Active 471198477 She had a significant outbreak with associated erythema multiforme in April 2016. She had an extensive evaluation with dermatology and infectious disease at the time. 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 It was likely related to herpes virus infection. She has been on chronic suppression therapy now with acyclovir 400 mg twice daily. Problem Generalized anxiety disorder F41.1 Active 218 97772 Problem Arthralgia, unspecified joint M25.50 Active 57 546068 She had multiple arthralgias related to herpes simplex outbreak in April 2016 through May 2016. These symptoms seem to have subsided mostly. She still wonders about an autoimmune process but I think she simply has osteoarthritis causing her present level of discomfort in the joints. Problem Menopausal disorder N95.9 Active 591896255 Problem History of Clostridium difficile colitis Z86.19 Active [id number] She has been treated with vancomycin in 10/2018 after she developed C. difficile colitis related to a course of Augmentin in early 10/2018. She had recurrence as of 11/2018 and has had further courses, coordinated by her infectious disease oracle drm consultant. This has apparently resolved. Problem Other hammer toe(s) (acquired), left foot M20.42 Active 77354512 Referred to orthopedic provider. Problem Other hammer toe(s) (acquired), right foot M20.41 Active [id number] Referred to orthopedic provider. ALLERGIES Allergen (clinical drug ingredient) Drug/Non Drug Allergy do cumented on EMR Reaction Allergy Type Onset Date Status Salicylic Acid bleeding- Rectal hemmorhag Drug Allergy Active salicylates bleeding Non Drug Allergy Active ENCOUNTERS from 1945 to 2020-03-30 Encounter Location Date Provider Diagnosis [address] [address] Mar, Conor Solis Post-traumatic stress disorder, unspecif ied [...] Education Mormonism: Question Answer Notes Mormonism 21 Rastafari Sexual Hx: Question Answer Notes Had sex [...] MEDICATIONS Medication SIG (Take, Route, Frequency, Duration) Start Date En d Date Status Multivitamins OTC 1 tab(s) Orally daily A ctive Zoloft 100 MG 1 tablet Orally Once [...] Information RESULTS No Results REASON FOR VISIT follow up MEDICAL (GENERAL) HISTORY Type Description Date Medical [...] STATUS No Information ASSESSMENTS Encounter Date Diagnosis Notes Mar, Generalized anxiety disorder (ICD-10 - F 41.1) Mar, Post-traumatic stress disorder, unspecif ied (ICD-10 - F43.10) PLAN OF TREATMENT Medication Medication Name Sig Start Date Stop Date Lipitor 20 MG 1 tablet Orally three times a week for 90 Next Appt Details Provider Name:Conor Solis 2020-04-05 02:0 0:00 PM, [address] [place], [address] Provider Name:Erum Casiano, 2020-06-07 10:30:00 AM, [address] [place], [address], Insurance Providers Payer Name Payer Address Payer Phone Insured Name Patient Relati onship to Insured Coverage Start Date Coverage End Date MEDICARE COMPLETE [facility] [address] [address] [facility] [phone] MALLY EAGLE V self
--- OUTSIDE RECORDS SUMMARY | 2020-06-24 08:07 | CCD ---
Author Author [facility] Organization [facility] Address Unknown Phone Unavailable Care Team Providers Care Mica Paster Name Role Phone Conor Solis Unavailable PROBLEMS Type Condition ICD9-CM Code [id number] Code Onset Dates Condition S tatus SNOMED Code Notes Problem Chronic diarrhea K52.9 Active 906016015 I bel ieve her prior evaluation has [...] now subsiding. Problem Cystocele, midline N81.11 Active 052686827 Problem Depression with anxiety F41.8 Active 42086605 6 She is maintained on trazodone and Zoloft and sees a mental health provider and neurologist regularly. She tried tapering off of her medications in late 2013 but did poorly. Her care is being monitored by a psychiatrist. Problem Postmenopausal atrophic vaginitis N95.2 Active 63437180 Problem Hyperlipidemia E78.5 Active 60109281 On Lipit or. Her lipid control meets primary prevention targets as of May 2017. She has a very favorable HDL of 98. She tried stopping her Lipitor in Fall 2013 but her lipid control deteriorated significantly. Problem Cervical radiculopathy M54.12 Active 56436579 Has some tingling in her left trapezius intermittently; recommend shoulder girdle exercises. She mentioned that again in 11/2016, and she felt it related to shoulder disease. Problem Tobacco use disorder Z72.0 Active 76175260 Problem Ocular migraine G43.109 Active 33621587 She has a history of ocular migraine. She had an MRI of her brain in May 2016. Diagnostic testing was also supported by her recent psychologic profile done by her mental health provider. She has documentation of that in her possession. I believe she follows with neurology. Problem Dupuytrens contracture M72.0 Active 721159361 Referred to orthopedics November 2016 and again in February 2019. 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 She had an extensive evaluation with dermatology and infectious disease at the time. 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 It was likely related to herpes virus infection. She has been on chronic suppression therapy now with acyclovir 400 mg twice daily. Problem Generalized anxiety disorder F41.1 Active 218 93030 Problem Arthralgia, unspecified joint M25.50 Active 57 215316 She had multiple arthralgias related to herpes simplex outbreak in April 2016 through May 2016. These symptoms seem to have subsided mostly. She still wonders about an autoimmune process but I think she simply has osteoarthritis causing her present level of discomfort in the joints. Problem Menopausal disorder N95.9 Active 501261780 Problem History of Clostridium difficile colitis Z86.19 Active [id number] She has been treated with vancomycin in 10/2018 after she developed C. difficile colitis related to a course of Augmentin in early 10/2018. She had recurrence as of 11/2018 and has had further courses, coordinated by her infectious disease pricing consultant. This has apparently resolved. Problem Other hammer toe(s) (acquired), left foot M20.42 Active 77815836 Referred to orthopedic provider. Problem Other hammer toe(s) (acquired), right foot M20.41 Active 947516940 Referred to orthopedic provider. ALLERGIES Allergen (clinical drug ingredient) Drug/Non Drug Allergy do cumented on EMR Reaction Allergy Type Onset Date Status Salicylic Acid bleeding- Rectal hemmorhag Drug Allergy Active salicylates bleeding Non Drug Allergy Active ENCOUNTERS from 1945 to 2020-04-22 Encounter Location Date Provider Diagnosis [address] [address] Apr, Conor Irma Post-traumatic stress disorder, unspecif ied F43.10 and [...] Notes Total Score: 5 Interpretation: Alcohol Education Christian: Question Answer Notes Christian 21 Gnosticist Sexual Hx: Question Answer Notes Had sex [...] Utilized CBT to role play a challenging irrational thoughts technique for decreasing her symptoms of anxiety. Shivani arrived on time for her appointment and actively participated in the development of her initial treaatment plan. Shivani was responsive to the CBT challenging irrational thoughts intervention for decreasing her symptoms of anxiety. Shivani reports that she has been experiencing anxiety related to her and her desire to be more social when restricted by COVID. Shivani agreed to utilize the technique that we role played and will return for psychotherapy on 05/04/2020. Shivani is aware to call for a soon appointment if needed and to utilize the ED for MH emergencies. PLAN OF TREATMENT Medication Medication Name Sig Start Date Stop Date Lipitor 20 MG 1 tablet Orally three times a week for 90 Next Appt Details Provider Name:Conor Solis, 2020-05-04 11:0 0:00 AM, [address] [place], [address] Provider Name:Erum Casiano, 2020-06-07 10:30:00 AM, [address] [place], [address], Insurance Providers Payer Name Payer Address Payer Phone Insured Name Patient Relati onship to Insured Coverage Start Date Coverage End Date MEDICARE COMPLETE [employer] [address] [address] [facility] [id number] MALLY EAGLE
[2020-06-24] MEDS ORDERED: LIDOCAINE 2% 100MG/5ML SDV (FOR ANES.) As Ordered ONE (09:50)
[2020-06-24] MEDS ORDERED: propofoL 200 MG/20 ML VIAL As Ordered ONE ×2 (09:50→10:14)
--- NOTE | 2020-06-24 10:26 | ROOR ---
Patient Name: Virginia Maguire Procedure Date: 06/24/2020 9:44 AM Date of : 1945 Age: 74 Room: [facility] Gender: Female Note Status: Finalized Procedure: Colonoscopy Indications: High risk colon cancer surveillance: Personal history of colonic polyps, Last colonoscopy: April 2019 (<1 cm right sided hyperplastic polyp) Providers: Pawel LEWIS MD Referring MD: Demario Juarez MD Requesting Provider: Medicines: Monitored Anesthesia Care Complications: No immediate complications. Procedure: Pre-Anesthesia Assessment: - The heart rate, respiratory rate, oxygen saturations, blood pressure, adequacy of pulmonary ventilation, and response to care were monitored throughout the procedure. The Colonoscope was introduced through the anus and advanced to the terminal ileum, with identification of the appendiceal orifice and IC valve. The colonoscopy was technically difficult and complex due to a redundant colon. The patient tolerated the procedure well. The quality of the bowel preparation was good. Findings: The perianal and digital rectal examinations were normal. A 5 mm polyp was found in the ascending colon. The polyp was sessile. The polyp was removed with a cold snare. Resection and retrieval were complete. A tattoo was seen in the proximal transverse colon. A post-polypectomy scar was found at the tattoo site. There was no evidence of residual polyp tissue. Mild sigmoid diverticulosis and small internal hemorrhoids. The exam was otherwise without abnormality on direct and retroflexion views. Impression: - Redundant colon. - One 5 mm polyp in the ascending colon, removed with a cold snare. Resected and retrieved. - A tattoo was seen in the proximal transverse colon. A post-polypectomy scar was found at the tattoo site. There was no evidence of residual polyp tissue. - Mild sigmoid diverticulosis and small internal hemorrhoids. - The colon examination was otherwise normal on direct and retroflexion views. Recommendation: - Repeat colonoscopy in 5 years for surveillance. Procedure Code(s): --- Professional --- 33670, Colonoscopy, flexible; with removal of tumor(s), polyp(s), or other lesion(s) by snare technique Diagnosis Code(s): --- Professional --- K63.5, Polyp of colon Z86.010, Personal history of colonic polyps CPT copyright 2019 [employer]. All rights reserved. The codes documented in this report are preliminary and upon middle school art teacher review may be revised to meet current compliance requirements. Pawel Lewis MD Pawel LEWIS MD 06/24/2020 10:25:50 AM Electronically signed by Pawel LEWIS MD Number of Addenda: 0 Note Initiated On: 06/24/2020 9:44 AM Estimated Blood Loss: Estimated blood loss: none.
[2020-06-24 11:05] VITALS: BP 124/57
== END 2020-06-24 11:20 | disposition home or self-care (01) ==
LOC: M OPP 08:02
PROVIDERS: ATTEND Internal Medicine Gastroenterology
DX: Z12.11 Encounter for screening for malignant neoplasm of colon (principal); Z86.010 Personal history of colon polyps; D12.2 Benign neoplasm of ascending colon; K57.30 Diverticulosis of large intestine without perforation or abscess without bleeding; K64.8 Other hemorrhoids; E78.5 Hyperlipidemia, unspecified; K58.9 Irritable bowel syndrome, unspecified; M19.90 Unspecified osteoarthritis, unspecified site; M81.0 Age-related osteoporosis without current pathological fracture; F41.9 Anxiety disorder, unspecified; F32.9 Major depressive disorder, single episode, unspecified; G43.909 Migraine, unspecified, not intractable, without status migrainosus; F43.10 Post-traumatic stress disorder, unspecified; Z86.14 Personal history of Methicillin resistant Staphylococcus aureus infection; Z79.899 Other long term (current) drug therapy; Z86.19 Personal history of other infectious and parasitic diseases; Z82.3 Family history of stroke; Z83.3 Family history of diabetes mellitus; Z80.8 Family history of malignant neoplasm of other organs or systems; Z81.8 Family history of other mental and behavioral disorders

== ENCOUNTER → 2020-10-24 | Outpatient (CLI) | payer MEDICARE ==
[~2020-10-24] MED LIST changes: -NS 1,000 ML IV ONE
[2020-10-24 15:06] LABS: BASO % 0.5 % (0.0-1.0); EOS # 0.1 10^3/uL (0.0-0.5); HEMATOCRIT 41.2 % (36.0-47.0); HEMOGLOBIN 13.1 g/dl (12.0-15.5); LYMPH # 2.4 10^3/uL (1.5-5.0); LYMPH % 31.4 % (24.0-44.0); MEAN CORPUSCULAR HEMOGLOBIN 30.6 pg (27.0-33.0); MEAN CORPUSCULAR HGB CONC 31.8 g/dl (32.0-36.5); MEAN CORPUSCULAR VOLUME 96.3 fl (80.0-96.0); MONO # 0.5 10^3/uL (0.0-0.8); MONO % 6.2 % (2.0-8.0); NEUTROPHILS # 4.7 10^3/uL (1.5-8.5); NEUTROPHILS % 60.6 % (36.0-66.0); PLATELET COUNT, AUTOMATED 221 10^3/uL (150-450); RED BLOOD COUNT 4.28 10^6/uL (4.00-5.40); WHITE BLOOD COUNT 7.8 10^3/uL (4.0-10.0)
[2020-10-24 15:35] LABS: ALBUMIN 3.7 GM/DL (3.2-5.2); ALT/SGPT 27 U/L (12-78); BILIRUBIN,TOTAL 0.5 MG/DL (0.2-1.0); BLOOD UREA NITROGEN 17 MG/DL (7-18); CARBON DIOXIDE LEVEL 25 MEQ/L (21-32); CHLORIDE LEVEL 106 MEQ/L (98-107); CHOLESTEROL LEVEL 205 MG/DL (<200); CHOLESTEROL RISK RATIO 2.383 (<5); CREATININE FOR GFR 0.64 MG/DL (0.55-1.30); ERYTHROCYTE SEDIMENTATION RATE 6 mm/hr (0-30); GLOMERULAR FILTRATION RATE > 60.0 (>39); GLUCOSE, FASTING 80 MG/DL (70-100); HDL CHOLESTEROL 86 MG/DL (>40); LDL CHOLESTEROL 109 MG/DL (<100); NON-HDL-C 119 MG/DL; POTASSIUM SERUM 4.2 MEQ/L (3.5-5.1); SODIUM LEVEL 140 MEQ/L (136-145); TOTAL PROTEIN 6.7 GM/DL (6.4-8.2); TRIGLYCERIDES LEVEL 50 MG/DL (<150)
== END ==
LOC: M LAB 13:42
PROVIDERS: ATTEND Internal Medicine
DX: L51.9 Erythema multiforme, unspecified (principal); E78.5 Hyperlipidemia, unspecified; M25.50 Pain in unspecified joint

== ENCOUNTER → 2020-12-13 | Outpatient (CLI) | payer MEDICARE ==
[2020-12-13 15:17] LABS: BASO % 0.5 % (0.0-1.0); EOS # 0.1 10^3/uL (0.0-0.5); EOS % 0.7 % (0.0-3.0); HEMATOCRIT 45.7 % (36.0-47.0); HEMOGLOBIN 14.8 g/dl (12.0-15.5); LYMPH # 1.9 10^3/uL (1.5-5.0); LYMPH % 23.7 % (24.0-44.0); MEAN CORPUSCULAR HEMOGLOBIN 31.4 pg (27.0-33.0); MEAN CORPUSCULAR HGB CONC 32.4 g/dl (32.0-36.5); MONO # 0.5 10^3/uL (0.0-0.8); MONO % 6.4 % (2.0-8.0); NEUTROPHILS # 5.5 10^3/uL (1.5-8.5); NEUTROPHILS % 68.2 % (36.0-66.0); PLATELET COUNT, AUTOMATED 233 10^3/uL (150-450); RED BLOOD COUNT 4.71 10^6/uL (4.00-5.40)
[2020-12-13 15:40] LABS: ERYTHROCYTE SEDIMENTATION RATE 4 mm/hr (0-30)
[2020-12-13 15:43] LABS: HEMOGLOBIN A1c 5.3 %
[2020-12-13 16:04] LABS: ALT/SGPT 34 U/L (12-78); BILIRUBIN,TOTAL 0.4 MG/DL (0.2-1.0); BLOOD UREA NITROGEN 17 MG/DL (7-18); CALCIUM LEVEL 9.3 MG/DL (8.8-10.2); CARBON DIOXIDE LEVEL 30 MEQ/L (21-32); CHLORIDE LEVEL 110 MEQ/L (98-107); CREATININE FOR GFR 0.81 MG/DL (0.55-1.30); GLOMERULAR FILTRATION RATE > 60.0 (>39); GLUCOSE, FASTING 58 MG/DL (70-100); POTASSIUM SERUM 4.6 MEQ/L (3.5-5.1); RHEUMATOID FACTOR QUANT < 10.0 IU/ML (<15.0); SODIUM LEVEL 144 MEQ/L (136-145); THYROID STIMULATING HORMONE 0.727 uIU/ML (0.358-3.740); TOTAL PROTEIN 7.4 GM/DL (6.4-8.2); VITAMIN B12 LEVEL 425 PG/ML
[2020-12-13 16:06] LABS: FOLATE 16.9 NG/ML
[2020-12-15 10:51] LABS: ALBUMIN 4.57 GM/DL (3.29-5.55); ALBUMIN % 61.7 % (55.8-66.1); ALPHA-1-GLOBULIN % 4.8 % (2.9-4.9); ALPHA-1-GLOBULINS 0.36 GM/DL (0.17-0.41); ALPHA-2-GLOBULINS 0.78 GM/DL (0.42-0.99); ALPHA-2-GLOBULINS % 10.6 % (7.1-11.8); BETA-1-GLOBULINS 0.38 GM/DL (0.28-0.60); BETA-1-GLOBULINS % 5.2 % (4.7-7.2); BETA-2-GLOBULINS 0.38 GM/DL (0.19-0.55); BETA-2-GLOBULINS % 5.1 % (3.2-6.5); GAMMA GLOBULIN % 12.6 % (11.1-18.8); GAMMA GLOBULINS 0.93 GM/DL (0.65-1.58)
[2020-12-20 13:10] LABS: ANTINUCLEAR ANTIBODIES DIRECT Negative (Negative); Lyme Disease IgG Ab 18 kDa Ban Absent (.); Lyme Disease IgG Ab 23 kDa Ban Absent (.); Lyme Disease IgG Ab 28 kDa Ban Absent (.); Lyme Disease IgG Ab 30 kDa Ban Absent (.); Lyme Disease IgG Ab 39 kDa Ban Absent (.); Lyme Disease IgG Ab 41 kDa Ban Absent (.); Lyme Disease IgG Ab 45 kDa Ban Absent (.); Lyme Disease IgG Ab 58 kDa Ban Absent (.); Lyme Disease IgG Ab 66 kDa Ban Absent (.); Lyme Disease IgG Ab 93 kDa Ban Absent (.); Lyme Disease IgG West Blot Int Negative (.); Lyme Disease IgG/IgM Antibodie <0.91 ISR (0.00-0.90); Lyme Disease IgM Ab 23 kDa Ban Absent (.); Lyme Disease IgM Ab 39 kDa Ban Absent (.); Lyme Disease IgM Ab 41 kDa Ban Absent (.); Lyme Disease IgM Ab Quantitati 1.52 index (0.00-0.79); Lyme Disease IgM West Blot Int Negative (.); VITAMIN B1 LEVEL WHOLE BLOOD 137.9 nmol/L (66.5-200.0); VITAMIN B6,PYRIDOXAL PHOSPHATE 31.1 ug/L (2.0-32.8); VITAMIN E(GAMMA TOCOPHEROL) 0.9 mg/L (0.5-4.9)
[2020-12-21 13:56] LABS: DRVV SCREEN 42.3 SEC
[2020-12-21 13:57] LABS: PTT LUPUS TYPE ANTICOAG SCREEN 1.2 (0-1.2)
[2020-12-21 14:03] LABS: DRVV CONFIRM 37.8 SEC
[2020-12-21 14:08] LABS: NORMALIZED RATIO 1.2 (0.00-1.20)
== END ==
LOC: M LAB 14:31
PROVIDERS: ATTEND Psychiatry & Neurology Neurology
DX: G62.9 Polyneuropathy, unspecified (principal)

== ENCOUNTER → 2021-03-08 | Outpatient (CLI) | payer MEDICARE | LOC: M LABSMTC 11:19 | PROVIDERS: ATTEND Pediatrics | DX: Z20.822 Contact with and (suspected) exposure to COVID-19 (principal) | CPT/HCPCS: C9803; U0003 ==

== ENCOUNTER → 2021-10-05 | Outpatient (CLI) | payer MEDICARE | LOC: M WHC 13:55 | PROVIDERS: ATTEND Advanced Practice Midwife | DX: Z12.31 Encounter for screening mammogram for malignant neoplasm of breast (principal); R92.8 Other abnormal and inconclusive findings on diagnostic imaging of breast ==

== ENCOUNTER → 2021-10-18 | Outpatient (CLI) | payer MEDICARE | LOC: M WHC 14:25 | PROVIDERS: ATTEND Advanced Practice Midwife | DX: R92.8 Other abnormal and inconclusive findings on diagnostic imaging of breast (principal); N60.02 Solitary cyst of left breast | CPT/HCPCS: 76642; 77065; G0279 ==

== ENCOUNTER → 2021-10-31 | Outpatient (CLI) | payer MEDICARE ==
[2021-10-31 13:38] LABS: BASO % 0.8 % (0.0-1.0); EOS # 0.1 10^3/uL (0.0-0.5); HEMATOCRIT 45.1 % (36.0-47.0); LYMPH # 1.8 10^3/uL (1.5-5.0); MEAN CORPUSCULAR HEMOGLOBIN 30.4 pg (27.0-33.0); MEAN CORPUSCULAR VOLUME 97.8 fl (80.0-96.0); MONO # 0.4 10^3/uL (0.0-0.8); MONO % 7.2 % (2.0-8.0); NEUTROPHILS # 2.7 10^3/uL (1.5-8.5); NEUTROPHILS % 53.6 % (36.0-66.0); PLATELET COUNT, AUTOMATED 212 10^3/uL (150-450); RED BLOOD COUNT 4.61 10^6/uL (4.00-5.40)
[2021-10-31 13:49] LABS: ALBUMIN 3.8 GM/DL (3.2-5.2); ALT/SGPT 29 U/L (12-78); BILIRUBIN,TOTAL 0.4 MG/DL (0.2-1.0); BLOOD UREA NITROGEN 17 MG/DL (7-18); CALCIUM LEVEL 9.6 MG/DL (8.8-10.2); CARBON DIOXIDE LEVEL 28 MEQ/L (21-32); CHLORIDE LEVEL 109 MEQ/L (98-107); CHOLESTEROL LEVEL 227 MG/DL (<200); CHOLESTEROL RISK RATIO 2.802 (<5); CREATININE FOR GFR 0.81 MG/DL (0.55-1.30); GLOMERULAR FILTRATION RATE > 60.0 (>39); GLUCOSE, FASTING 92 MG/DL (70-100); HDL CHOLESTEROL 81 MG/DL (>40); LDL CHOLESTEROL 134 MG/DL (<100); NON-HDL-C 146 MG/DL; POTASSIUM SERUM 4.6 MEQ/L (3.5-5.1); SODIUM LEVEL 141 MEQ/L (136-145); TOTAL PROTEIN 7.1 GM/DL (6.4-8.2); TRIGLYCERIDES LEVEL 60 MG/DL (<150)
== END ==
LOC: M PLALAB 09:29
PROVIDERS: ATTEND Internal Medicine
DX: E78.5 Hyperlipidemia, unspecified (principal); L51.9 Erythema multiforme, unspecified

== ENCOUNTER → 2022-01-19 | Outpatient (CLI) | payer MEDICARE ==
[2022-01-19 14:34] LABS: BASO % 0.6 % (0.0-1.0); EOS # 0.1 10^3/uL (0.0-0.5); EOS % 0.9 % (0.0-3.0); HEMATOCRIT 44.8 % (36.0-47.0); HEMOGLOBIN 14.4 g/dl (12.0-15.5); LYMPH # 1.7 10^3/uL (1.5-5.0); LYMPH % 26.3 % (24.0-44.0); MEAN CORPUSCULAR HEMOGLOBIN 31.6 pg (27.0-33.0); MEAN CORPUSCULAR HGB CONC 32.1 g/dl (32.0-36.5); MEAN CORPUSCULAR VOLUME 98.5 fl (80.0-96.0); MONO # 0.3 10^3/uL (0.0-0.8); NEUTROPHILS # 4.3 10^3/uL (1.5-8.5); NEUTROPHILS % 66.7 % (36.0-66.0); PLATELET COUNT, AUTOMATED 261 10^3/uL (150-450); RED BLOOD COUNT 4.55 10^6/uL (4.00-5.40); WHITE BLOOD COUNT 6.4 10^3/uL (4.0-10.0)
[2022-01-19 15:17] LABS: ALBUMIN 4.1 GM/DL (3.2-5.2); ALT/SGPT 24 U/L (12-78); BILIRUBIN,TOTAL 0.5 MG/DL (0.2-1.0); BLOOD UREA NITROGEN 14 MG/DL (7-18); CALCIUM LEVEL 9.7 MG/DL (8.8-10.2); CARBON DIOXIDE LEVEL 26 MEQ/L (21-32); CHLORIDE LEVEL 106 MEQ/L (98-107); CREATININE FOR GFR 0.69 MG/DL (0.55-1.30); GLOMERULAR FILTRATION RATE > 60.0 (>39); GLUCOSE, FASTING 79 MG/DL (70-100); POTASSIUM SERUM 4.1 MEQ/L (3.5-5.1); RHEUMATOID FACTOR QUANT < 10.0 IU/ML (<15.0); SODIUM LEVEL 139 MEQ/L (136-145); THYROID STIMULATING HORMONE 0.771 uIU/ML (0.358-3.740); TOTAL PROTEIN 7.3 GM/DL (6.4-8.2)
[2022-01-19 15:31] LABS: ERYTHROCYTE SEDIMENTATION RATE 4 mm/hr (0-30); HEMOGLOBIN A1c 5.3 %
[2022-01-19 15:59] LABS: FOLATE 21.1 NG/ML; VITAMIN B12 LEVEL 414 PG/ML
[2022-01-29 06:33] LABS: DRVV SCREEN 37.1 SEC
[2022-01-29 13:07] LABS: ANTI DS-DNA AB Negative (Negative); ANTINUCLEAR ANTIBODIES DIRECT Negative (Negative); SJOGREN'S ANTI SS-A <0.2 AI (0.0-0.9); SJOGREN'S ANTI SS-B <0.2 AI (0.0-0.9); VITAMIN B1 LEVEL WHOLE BLOOD 114.3 nmol/L (66.5-200.0); VITAMIN B6,PYRIDOXAL PHOSPHATE 19.4 ug/L (3.4-65.2); VITAMIN E(ALPHA TOCOPHEROL) 11.8 mg/L (9.0-29.0); VITAMIN E(GAMMA TOCOPHEROL) 1.3 mg/L (0.5-4.9)
== END ==
LOC: M LAB 12:05
PROVIDERS: ATTEND Psychiatry & Neurology Neurology
DX: G62.9 Polyneuropathy, unspecified (principal)

== ENCOUNTER → 2022-01-30 | Outpatient (CLI) | payer MEDICARE ==
[2022-01-30 14:31] LABS: C REACTIVE PROTEIN QUANTITATIV < 0.30 MG/DL (0.00-0.30)
[2022-02-01 00:08] LABS: ANTINUCLEAR ANTIBODIES DIRECT Negative (Negative); CYCLIC CITRULLINATED PEPTIDE 2 units (0-19)
== END ==
LOC: M LAB 13:08
PROVIDERS: ATTEND Internal Medicine Hematology
DX: M50.20 Other cervical disc displacement, unspecified cervical region (principal)

== ENCOUNTER → 2022-03-08 | Outpatient (CLI) | payer MEDICARE ==
[2022-03-08 12:23] LABS: HEMATOCRIT 42.9 % (36.0-47.0); MEAN CORPUSCULAR HEMOGLOBIN 31.6 pg (27.0-33.0); MEAN CORPUSCULAR HGB CONC 32.6 g/dl (32.0-36.5); MEAN CORPUSCULAR VOLUME 96.8 fl (80.0-96.0); PLATELET COUNT, AUTOMATED 222 10^3/uL (150-450); RED BLOOD COUNT 4.43 10^6/uL (4.00-5.40); WHITE BLOOD COUNT 7.3 10^3/uL (4.0-10.0)
[2022-03-08 13:03] LABS: HEMOGLOBIN A1c 5.4 %
[2022-03-08 13:06] LABS: ALT/SGPT 24 U/L (12-78); BLOOD UREA NITROGEN 18 MG/DL (7-18); CARBON DIOXIDE LEVEL 25 MEQ/L (21-32); CHLORIDE LEVEL 106 MEQ/L (98-107); CREATININE FOR GFR 0.72 MG/DL (0.55-1.30); GLOMERULAR FILTRATION RATE > 60.0 (>39); GLUCOSE, FASTING 92 MG/DL (70-100); POTASSIUM SERUM 4.5 MEQ/L (3.5-5.1); SODIUM LEVEL 137 MEQ/L (136-145)
[2022-03-08 13:07] LABS: ALBUMIN 3.8 GM/DL (3.2-5.2); BILIRUBIN,TOTAL 0.5 MG/DL (0.2-1.0); CHOLESTEROL LEVEL 219 MG/DL (<200); CHOLESTEROL RISK RATIO 2.546 (<5); FREE T4 0.92 NG/DL (0.76-1.46); HDL CHOLESTEROL 86 MG/DL (>40); LDL CHOLESTEROL 117 MG/DL (<100); NON-HDL-C 133 MG/DL; TRIGLYCERIDES LEVEL 79 MG/DL (<150)
[2022-03-08 13:13] LABS: CREATININE, URINE 55.3 MG/DL; MALB URINE SIEMENS < 5.0 MG/L
[2022-03-08 13:30] LABS: TOTAL 25(OH) VITAMIN D 89.2 NG/ML (30.0-100.0); VITAMIN B12 LEVEL 293 PG/ML (247-911)
== END ==
LOC: M LAB 11:23
PROVIDERS: ATTEND Internal Medicine Hematology
DX: E78.5 Hyperlipidemia, unspecified (principal)

== ENCOUNTER → 2022-04-24 | Outpatient (REF) | payer MEDICARE ==
[2022-04-24 15:11] LABS: PHOSPHORUS LEVEL 3.3 MG/DL (2.4-5.1)
[2022-04-24 15:14] LABS: TOTAL 25(OH) VITAMIN D 93.2 NG/ML (20.0-100.0)
== END ==
LOC: M SFHCRHEU 11:07
PROVIDERS: ATTEND Internal Medicine
DX: M79.10 Myalgia, unspecified site (principal); D50.9 Iron deficiency anemia, unspecified

== ENCOUNTER → 2022-04-30 | Outpatient (CLI) | payer MEDICARE | LOC: M PLALAB 12:13 | PROVIDERS: ATTEND Internal Medicine | DX: M19.071 Primary osteoarthritis, right ankle and foot (principal); M19.072 Primary osteoarthritis, left ankle and foot; M20.11 Hallux valgus (acquired), right foot; M20.12 Hallux valgus (acquired), left foot; M25.771 Osteophyte, right ankle ==

== ENCOUNTER → 2022-05-28 | Outpatient (CLI) | payer MEDICARE ==
[2022-05-28 15:28] LABS: IMMUNOGLOBULIN A 149.5 MG/DL (40-350)
[2022-05-28 15:29] LABS: IMMUNOGLOBULIN M 48.5 MG/DL (50-300)
== END ==
LOC: M PLALAB 12:24
PROVIDERS: ATTEND Internal Medicine Hematology
DX: M79.2 Neuralgia and neuritis, unspecified (principal)

== ENCOUNTER → 2022-11-26 | Outpatient (REF) | payer MEDICARE ==
[~2022-11-26] MED LIST changes: +DICY-61 PO; -DICY10CA13 PO
== END ==
LOC: M SFHCRHEU 11:41
PROVIDERS: ATTEND Internal Medicine
DX: E67.3 Hypervitaminosis D (principal)

== ENCOUNTER → 2022-12-19 | Outpatient (CLI) | payer MEDICARE ==
[2022-12-19 11:50] LABS: HEMATOCRIT 42.3 % (36.0-47.0); HEMOGLOBIN 13.4 g/dl (12.0-15.5); MEAN CORPUSCULAR HEMOGLOBIN 30.9 pg (27.0-33.0); MEAN CORPUSCULAR HGB CONC 31.7 g/dl (32.0-36.5); MEAN CORPUSCULAR VOLUME 97.7 fl (80.0-96.0); PLATELET COUNT, AUTOMATED 207 10^3/uL (150-450); RED BLOOD COUNT 4.33 10^6/uL (4.00-5.40); WHITE BLOOD COUNT 4.8 10^3/uL (4.0-10.0)
[2022-12-19 12:09] LABS: ALBUMIN 3.7 G/DL (3.2-5.2); ALKALINE PHOSPHATASE 51 U/L (46-116); ALT/SGPT 24 U/L (7.0-40); AST/SGOT 25 U/L (<34); BILIRUBIN,TOTAL 0.6 MG/DL (0.3-1.2); BLOOD UREA NITROGEN 12 MG/DL (9-23); CARBON DIOXIDE LEVEL 28 MMOL/L (20-31); CHLORIDE LEVEL 109 MMOL/L (98-107); CHOLESTEROL LEVEL 188 MG/DL (<200); CHOLESTEROL RISK RATIO 2.67 (<5); CREATININE FOR GFR 0.66 MG/DL (0.55-1.30); GLOMERULAR FILTRATION RATE > 60.0 (>39); GLUCOSE, FASTING 89 MG/DL (74-106); HDL CHOLESTEROL 70.4 MG/DL (>40); LDL CHOLESTEROL 105.8 MG/DL (<100); NON-HDL-C 117.6 MG/DL; POTASSIUM SERUM 4.4 MMOL/L (3.5-5.1); SODIUM LEVEL 143 MMOL/L (136-145); TOTAL PROTEIN 6.4 G/DL (5.7-8.2); TRIGLYCERIDES LEVEL 59 MG/DL (<150)
[2022-12-19 12:10] LABS: FREE T4 1.11 NG/DL (0.89-1.76); THYROID STIMULATING HORMONE 1.344 uIU/ML (0.55-4.78); VITAMIN B12 LEVEL 449 PG/ML (211-911)
[2022-12-19 12:11] LABS: C REACTIVE PROTEIN QUANTITATIV < 0.40 MG/DL (<1.0)
[2022-12-19 12:21] LABS: HEMOGLOBIN A1c 5.4 % (4.0-6.0)
== END ==
LOC: M LAB 11:09
PROVIDERS: ATTEND Internal Medicine Hematology
DX: E78.5 Hyperlipidemia, unspecified (principal)

== ENCOUNTER 2022-12-28 18:09 | Emergency (ER) | payer MEDICARE ==
[~2022-12-28] VITALS: Ht 177.8 cm; Wt 75.5 kg
[2022-12-28 18:26] VITALS: TEMP 96.7
[2022-12-28] MEDS ORDERED: BOOSTRIX VACCINE (TETANUS/DIPHTH/ACEL. PERTUSSIS) 0.5ML SYR IM.IMMUN ONE (18:30)
[2022-12-28] MEDS ORDERED: ONDANSETRON 4MG 2ML VIAL IV ONE (18:30)
[2022-12-28] MEDS ORDERED: MORPHINE 2 MG/ML 1ML VIAL IV ONE (18:30)
[2022-12-28] MEDS ORDERED: ISOVUE-370 76% 100ML VIAL As Ordered ONE (18:42)
[2022-12-28 18:48] LABS: BASO # 0.1 10^3/uL (0.0-0.2); BASO % 0.5 % (0.0-1.0); EOS # 0.1 10^3/uL (0.0-0.5); EOS % 1.2 % (0.0-3.0); HEMATOCRIT 38.3 % (36.0-47.0); HEMOGLOBIN 12.7 g/dl (12.0-15.5); LYMPH # 1.8 10^3/uL (1.5-5.0); LYMPH % 15.4 % (24.0-44.0); MEAN CORPUSCULAR HEMOGLOBIN 31.4 pg (27.0-33.0); MEAN CORPUSCULAR HGB CONC 33.2 g/dl (32.0-36.5); MEAN CORPUSCULAR VOLUME 94.6 fl (80.0-96.0); MONO # 0.7 10^3/uL (0.0-0.8); MONO % 5.5 % (2.0-8.0); NEUTROPHILS # 9.1 10^3/uL (1.5-8.5); NEUTROPHILS % 76.9 % (36.0-66.0); PLATELET COUNT, AUTOMATED 203 10^3/uL (150-450); RED BLOOD COUNT 4.05 10^6/uL (4.00-5.40); WHITE BLOOD COUNT 11.8 10^3/uL (4.0-10.0)
[2022-12-28 19:01] LABS: INR 1.03; PARTIAL THROMBOPLASTIN TIME 26.1 SECONDS (24.8-34.2); PROTHROMBIN TIME 13.2 SECONDS (12.5-14.5)
[2022-12-28 19:18] LABS: CK-MB VALUE MASS 4.9 NG/ML (<3.6)
[2022-12-28 19:19] LABS: BLOOD UREA NITROGEN 19 MG/DL (9-23); CALCIUM LEVEL 8.8 MG/DL (8.3-10.6); CARBON DIOXIDE LEVEL 26 MMOL/L (20-31); CHLORIDE LEVEL 107 MMOL/L (98-107); CPK CREATINE PHOSPHOKINASE 292 U/L (34-145); CREATININE FOR GFR 0.76 MG/DL (0.55-1.30); GLOMERULAR FILTRATION RATE > 60.0 (>39); GLUCOSE, FASTING 114 MG/DL (74-106); MB/CK RELATIVE INDEX 1.67 (< OR =4); POTASSIUM SERUM 3.7 MMOL/L (3.5-5.1); SODIUM LEVEL 140 MMOL/L (136-145)
[2022-12-28 20:16] VITALS: BP 125/63; O2SAT 98
[2022-12-28] MEDS ORDERED: NS 1,000 ML IV SCH (20:20)
== END 2022-12-28 20:48 | disposition short-term general hospital (02) ==
LOC: M ED 18:09 → EDBD 18:09 → M ED 20:48
DX: R93.89 Abnormal findings on diagnostic imaging of other specified body structures (principal); S01.01XA Laceration without foreign body of scalp, initial encounter; S20.229A Contusion of unspecified back wall of thorax, initial encounter; S32.038A Other fracture of third lumbar vertebra, initial encounter for closed fracture; S32.048A Other fracture of fourth lumbar vertebra, initial encounter for closed fracture; S32.058A Other fracture of fifth lumbar vertebra, initial encounter for closed fracture; M48.061 Spinal stenosis, lumbar region without neurogenic claudication; K57.30 Diverticulosis of large intestine without perforation or abscess without bleeding; I51.7 Cardiomegaly; K76.89 Other specified diseases of liver; W10.9XXA Fall (on) (from) unspecified stairs and steps, initial encounter; Y92.009 Unspecified place in unspecified non-institutional (private) residence as the place of occurrence of the external cause; F43.10 Post-traumatic stress disorder, unspecified; F32.A Depression, unspecified; F41.9 Anxiety disorder, unspecified; D50.9 Iron deficiency anemia, unspecified; Z87.891 Personal history of nicotine dependence; Z79.899 Other long term (current) drug therapy
CPT/HCPCS: 70450; 71260; 72125; 72128; 72131; 74177; 80047; 80048; 82550; 82553; 84484; 85025; 85610; 85730; 90471; 90715; 93005; 93041; 94760; 96374; 96375; 99285; J2405; Q9967

== ENCOUNTER → 2023-02-04 | Outpatient (CLI) | payer MEDICARE | LOC: M PLAIMG 12:12 | PROVIDERS: ATTEND Physician Assistant | DX: M53.3 Sacrococcygeal disorders, not elsewhere classified (principal); M54.50 Low back pain, unspecified; M79.604 Pain in right leg; S32.059S Unspecified fracture of fifth lumbar vertebra, sequela; M16.12 Unilateral primary osteoarthritis, left hip; M51.37 Other intervertebral disc degeneration, lumbosacral region; M51.36 Other intervertebral disc degeneration, lumbar region; M47.816 Spondylosis without myelopathy or radiculopathy, lumbar region; M47.817 Spondylosis without myelopathy or radiculopathy, lumbosacral region ==

== ENCOUNTER → 2023-03-05 | Outpatient (CLI) | payer MEDICARE | LOC: M PAIN 13:00 | PROVIDERS: ATTEND Nurse Practitioner Family | DX: M79.10 Myalgia, unspecified site (principal); Z86.14 Personal history of Methicillin resistant Staphylococcus aureus infection; Z87.891 Personal history of nicotine dependence; Z88.8 Allergy status to other drugs, medicaments and biological substances; Z79.899 Other long term (current) drug therapy ==

== ENCOUNTER → 2023-04-17 | Outpatient (CLI) | payer MEDICARE | LOC: M WHC 12:54 | PROVIDERS: ATTEND Internal Medicine Hematology | DX: M85.89 Other specified disorders of bone density and structure, multiple sites (principal) ==

== ENCOUNTER → 2023-06-13 | Outpatient (CLI) | payer MEDICARE ==
[2023-06-13 15:04] LABS: HEMATOCRIT 42.6 % (36.0-47.0); HEMOGLOBIN 13.6 g/dl (12.0-15.5); MEAN CORPUSCULAR HEMOGLOBIN 30.6 pg (27.0-33.0); MEAN CORPUSCULAR HGB CONC 31.9 g/dl (32.0-36.5); MEAN CORPUSCULAR VOLUME 95.9 fl (80.0-96.0); PLATELET COUNT, AUTOMATED 215 10^3/uL (150-450); RED BLOOD COUNT 4.44 10^6/uL (4.00-5.40); WHITE BLOOD COUNT 6.3 10^3/uL (4.0-10.0)
[2023-06-13 15:26] LABS: CREATININE, URINE 109.9 MG/DL; MAU/CREAT RATIO 2.7 MCG/MG (0.0-30.0)
[2023-06-13 15:28] LABS: C REACTIVE PROTEIN QUANTITATIV < 0.40 MG/DL (<1.0); HEMOGLOBIN A1c 5.2 % (4.0-6.0); TOTAL 25(OH) VITAMIN D 80.7 NG/ML (20.0-100.0)
[2023-06-13 15:29] LABS: THYROID STIMULATING HORMONE 1.205 uIU/ML (0.55-4.78)
[2023-06-13 15:30] LABS: ALBUMIN 3.8 G/DL (3.2-5.2); ALKALINE PHOSPHATASE 62 U/L (46-116); ALT/SGPT 19 U/L (7.0-40); AST/SGOT 27 U/L (<34); BILIRUBIN,TOTAL 0.6 MG/DL (0.3-1.2); BLOOD UREA NITROGEN 18 MG/DL (9-23); CARBON DIOXIDE LEVEL 30 MMOL/L (20-31); CHLORIDE LEVEL 108 MMOL/L (98-107); CHOLESTEROL LEVEL 211 MG/DL (<200); CHOLESTEROL RISK RATIO 2.77 (<5); CREATININE FOR GFR 0.73 MG/DL (0.55-1.30); FREE T4 1.04 NG/DL (0.89-1.76); GLOMERULAR FILTRATION RATE > 60.0 (>39); GLUCOSE, FASTING 78 MG/DL (74-106); LDL CHOLESTEROL 123.8 MG/DL (<100); POTASSIUM SERUM 4.4 MMOL/L (3.5-5.1); SODIUM LEVEL 143 MMOL/L (136-145); TOTAL PROTEIN 6.6 G/DL (5.7-8.2); TRIGLYCERIDES LEVEL 56 MG/DL (<150)
[2023-06-13 15:31] LABS: VITAMIN B12 LEVEL 438 PG/ML (211-911)
== END ==
LOC: M PLALAB 11:43
PROVIDERS: ATTEND Internal Medicine Hematology
DX: E78.2 Mixed hyperlipidemia (principal); Z79.899 Other long term (current) drug therapy

== ENCOUNTER → 2023-12-12 | Outpatient (CLI) | payer MEDICARE ==
[2023-12-12 16:13] LABS: BASO % 0.7 % (0.0-1.0); EOS # 0.1 10^3/uL (0.0-0.5); EOS % 2.1 % (0.0-3.0); HEMOGLOBIN 13.7 g/dl (12.0-15.5); LYMPH # 1.7 10^3/uL (1.5-5.0); LYMPH % 30.5 % (24.0-44.0); MEAN CORPUSCULAR HEMOGLOBIN 31.6 pg (27.0-33.0); MEAN CORPUSCULAR HGB CONC 32.6 g/dl (32.0-36.5); MEAN CORPUSCULAR VOLUME 96.8 fl (80.0-96.0); MONO # 0.4 10^3/uL (0.0-0.8); NEUTROPHILS # 3.4 10^3/uL (1.5-8.5); NEUTROPHILS % 59.3 % (36.0-66.0); PLATELET COUNT, AUTOMATED 204 10^3/uL (150-450); RED BLOOD COUNT 4.34 10^6/uL (4.00-5.40); WHITE BLOOD COUNT 5.7 10^3/uL (4.0-10.0)
[2023-12-12 16:38] LABS: HEMOGLOBIN A1c 5.2 % (4.0-6.0)
[2023-12-12 16:41] LABS: C REACTIVE PROTEIN QUANTITATIV < 0.40 MG/DL (<1.0); CREATININE, URINE 108.4 MG/DL; MAU/CREAT RATIO 4.6 MCG/MG (0.0-30.0)
[2023-12-12 16:43] LABS: ALBUMIN 3.7 G/DL (3.2-5.2); ALKALINE PHOSPHATASE 59 U/L (46-116); ALT/SGPT 25 U/L (7.0-40); AST/SGOT 29 U/L (<34); BILIRUBIN,TOTAL 0.5 MG/DL (0.3-1.2); BLOOD UREA NITROGEN 15 MG/DL (9-23); CALCIUM LEVEL 8.9 MG/DL (8.3-10.6); CARBON DIOXIDE LEVEL 27 MMOL/L (20-31); CHLORIDE LEVEL 107 MMOL/L (98-107); CHOLESTEROL LEVEL 188 MG/DL (<200); CHOLESTEROL RISK RATIO 2.47 (<5); CREATININE FOR GFR 0.69 MG/DL (0.55-1.30); GLOMERULAR FILTRATION RATE > 60.0 (>39); GLUCOSE, FASTING 89 MG/DL (74-106); HDL CHOLESTEROL 75.9 MG/DL (>40); LDL CHOLESTEROL 100.1 MG/DL (<100); NON-HDL-C 112.1 MG/DL; POTASSIUM SERUM 5.1 MMOL/L (3.5-5.1); SODIUM LEVEL 139 MMOL/L (136-145); TOTAL PROTEIN 6.4 G/DL (5.7-8.2); TRIGLYCERIDES LEVEL 60 MG/DL (<150)
[2023-12-12 16:46] LABS: FREE T4 1.02 NG/DL (0.89-1.76); THYROID STIMULATING HORMONE 0.893 uIU/ML (0.55-4.78)
[2023-12-12 16:47] LABS: TOTAL 25(OH) VITAMIN D 85.1 NG/ML (20.0-100.0)
[2023-12-12 16:48] LABS: VITAMIN B12 LEVEL 635 PG/ML (211-911)
== END ==
LOC: M PLALAB 12:11
PROVIDERS: ATTEND Internal Medicine Hematology
DX: E78.5 Hyperlipidemia, unspecified (principal); Z79.899 Other long term (current) drug therapy

== ENCOUNTER 2024-02-28 22:42 | Emergency (ER) | payer MEDICARE ==
[2024-02-28 22:53] VITALS: BP 147/67; TEMP 96.3; O2SAT 98
[2024-02-29] MEDS: LIDOCAINE W/EPINEPHRINE 1% 20ML VIAL SC ONE (03:40)
[2024-02-29] MEDS: BOOSTRIX VACCINE (TETANUS/DIPHTH/ACEL. PERTUSSIS) 0.5ML SYR IM ONE (04:37)
== END 2024-02-29 04:48 | disposition home or self-care (01) ==
LOC: M ED 22:42
DX: S81.811A Laceration without foreign body, right lower leg, initial encounter (principal); W26.8XXA Contact with other sharp object(s), not elsewhere classified, initial encounter; G43.909 Migraine, unspecified, not intractable, without status migrainosus; F41.1 Generalized anxiety disorder; F32.A Depression, unspecified; E78.5 Hyperlipidemia, unspecified; F43.10 Post-traumatic stress disorder, unspecified; F17.200 Nicotine dependence, unspecified, uncomplicated; F10.10 Alcohol abuse, uncomplicated; Z23 Encounter for immunization; Z88.8 Allergy status to other drugs, medicaments and biological substances; Z79.02 Long term (current) use of antithrombotics/antiplatelets; Z79.899 Other long term (current) drug therapy; Y92.009 Unspecified place in unspecified non-institutional (private) residence as the place of occurrence of the external cause; Y93.89 Activity, other specified; Y99.9 Unspecified external cause status

== ENCOUNTER → 2024-03-12 | Outpatient (CLI) | payer MEDICARE ==
[2024-03-14 03:43] LABS: IgG P18 AB NON-REACTIVE; IgG P23 AB NON-REACTIVE; IgG P28 AB NON-REACTIVE; IgG P30 AB NON-REACTIVE; IgG P39 AB NON-REACTIVE; IgG P41 AB NON-REACTIVE; IgG P45 AB NON-REACTIVE; IgG P58 AB NON-REACTIVE; IgG P66 AB NON-REACTIVE; IgG P93 AB NON-REACTIVE; IgM P23 AB NON-REACTIVE; IgM P39 AB NON-REACTIVE; IgM P41 AB NON-REACTIVE; LYME IgG WB INTERPRETATION NEGATIVE (NEGATIVE); LYME IgM WB INTERPRETATION NEGATIVE (NEGATIVE)
[2024-03-16 13:31] LABS: LYME TOTAL ANTIBODY CIA 1.17 Index (<=0.90)
[2024-03-16 16:42] LABS: LYME AB IGG BY CIA <= 0.90 Index (<=0.90); LYME AB IGM BY CIA 1.06 Index (<=0.90)
== END ==
LOC: M PLALAB 12:43
PROVIDERS: ATTEND Internal Medicine Hematology
DX: S30.860D Insect bite (nonvenomous) of lower back and pelvis, subsequent encounter (principal); X58.XXXD Exposure to other specified factors, subsequent encounter; Y92.9 Unspecified place or not applicable; Y93.9 Activity, unspecified; Y99.9 Unspecified external cause status

== ENCOUNTER → 2024-03-25 | Outpatient (CLI) | payer MEDICARE | LOC: M PLALAB 10:30 | PROVIDERS: ATTEND Physician Assistant Medical | DX: E67.3 Hypervitaminosis D (principal) ==

== ENCOUNTER → 2024-04-22 | Outpatient (CLI) | payer MEDICARE | LOC: M LAB 15:27 | PROVIDERS: ATTEND Psychiatry & Neurology Neurology | DX: E55.9 Vitamin D deficiency, unspecified (principal) ==

== ENCOUNTER → 2024-04-28 | Outpatient (CLI) | payer MEDICARE ==
[2024-05-02 00:27] LABS: IgG P18 AB NON-REACTIVE; IgG P23 AB NON-REACTIVE; IgG P28 AB NON-REACTIVE; IgG P30 AB NON-REACTIVE; IgG P39 AB NON-REACTIVE; IgG P41 AB NON-REACTIVE; IgG P45 AB NON-REACTIVE; IgG P58 AB NON-REACTIVE; IgG P66 AB NON-REACTIVE; IgG P93 AB NON-REACTIVE; IgM P23 AB NON-REACTIVE; IgM P39 AB NON-REACTIVE; IgM P41 AB NON-REACTIVE; LYME IgG WB INTERPRETATION NEGATIVE (NEGATIVE); LYME IgM WB INTERPRETATION NEGATIVE (NEGATIVE)
[2024-05-02 22:03] LABS: LYME TOTAL ANTIBODY CIA 1.05 Index (<=0.90)
[2024-05-03 00:47] LABS: LYME AB IGG BY CIA <= 0.90 Index (<=0.90); LYME AB IGM BY CIA 0.96 Index (<=0.90)
== END ==
LOC: M PLALAB 15:30
PROVIDERS: ATTEND Internal Medicine Hematology
DX: A69.20 Lyme disease, unspecified (principal)

== ENCOUNTER → 2024-05-07 | Outpatient (REF) | payer MEDICARE | LOC: M SFHCPLAZ 11:20 | PROVIDERS: ATTEND Student in an Organized Health Care Education/Training Program | DX: F41.8 Other specified anxiety disorders (principal); E78.2 Mixed hyperlipidemia; Z13.29 Encounter for screening for other suspected endocrine disorder; Z13.21 Encounter for screening for nutritional disorder; Z13.1 Encounter for screening for diabetes mellitus ==

== ENCOUNTER → 2024-06-11 | Outpatient (CLI) | payer MEDICARE ==
[2024-06-11 18:26] LABS: ALBUMIN 3.8 G/DL (3.2-5.2); ALKALINE PHOSPHATASE 52 U/L (35-104); ALT/SGPT 19 U/L (7.0-40); AST/SGOT 20 U/L (<34); BILIRUBIN,TOTAL 0.5 MG/DL (0.3-1.2); BLOOD UREA NITROGEN 19 MG/DL (9-23); CALCIUM LEVEL 9.4 MG/DL (8.3-10.6); CARBON DIOXIDE LEVEL 29 MMOL/L (20-31); CHLORIDE LEVEL 109 MMOL/L (98-107); CHOLESTEROL LEVEL 209 MG/DL (<200); CHOLESTEROL RISK RATIO 2.69 (<5); CREATININE FOR GFR 0.71 MG/DL (0.55-1.30); GLOMERULAR FILTRATION RATE > 60.0 (>39); GLUCOSE, FASTING 86 MG/DL (74-106); HDL CHOLESTEROL 77.5 MG/DL (>40); LDL CHOLESTEROL 117.5 MG/DL (<100); NON-HDL-C 131.5 MG/DL; POTASSIUM SERUM 4.1 MMOL/L (3.5-5.1); SODIUM LEVEL 144 MMOL/L (136-145); THYROID STIMULATING HORMONE 1.332 uIU/ML (0.55-4.78); TOTAL PROTEIN 7.1 G/DL (5.7-8.2); TRIGLYCERIDES LEVEL 70 MG/DL (<150)
[2024-06-11 18:27] LABS: BASO # 0.1 10^3/uL (0.0-0.2); BASO % 0.9 % (0.0-1.0); EOS # 0.1 10^3/uL (0.0-0.5); EOS % 1.2 % (0.0-3.0); FREE T4 1.24 NG/DL (0.89-1.76); HEMATOCRIT 44.4 % (36.0-47.0); HEMOGLOBIN 14.2 g/dl (12.0-15.5); LYMPH # 1.6 10^3/uL (1.5-5.0); LYMPH % 23.2 % (24.0-44.0); MEAN CORPUSCULAR VOLUME 96.9 fl (80.0-96.0); MONO # 0.5 10^3/uL (0.0-0.8); MONO % 6.7 % (2.0-8.0); NEUTROPHILS # 4.6 10^3/uL (1.5-8.5); NEUTROPHILS % 67.6 % (36.0-66.0); PLATELET COUNT, AUTOMATED 212 10^3/uL (150-450); RED BLOOD COUNT 4.58 10^6/uL (4.00-5.40); WHITE BLOOD COUNT 6.9 10^3/uL (4.0-10.0)
[2024-06-11 18:28] LABS: VITAMIN B12 LEVEL 456 PG/ML (211-911)
[2024-06-11 18:31] LABS: HEMATOCRIT 43.5 % (36.0-47.0)
[2024-06-12 18:49] LABS: CREATININE, URINE 72.7 MG/DL; MAU/CREAT RATIO 9.6 MCG/MG (0.0-30.0)
== END ==
LOC: M PLALAB 14:02
PROVIDERS: ATTEND Student in an Organized Health Care Education/Training Program
DX: F41.8 Other specified anxiety disorders (principal); Z13.21 Encounter for screening for nutritional disorder; Z13.1 Encounter for screening for diabetes mellitus; E78.2 Mixed hyperlipidemia; Z13.29 Encounter for screening for other suspected endocrine disorder; F09 Unspecified mental disorder due to known physiological condition; E55.9 Vitamin D deficiency, unspecified

== ENCOUNTER → 2024-12-04 | Outpatient (REF) | payer MEDICARE | LOC: M SFHCRHEU 12:39 | PROVIDERS: ATTEND Internal Medicine | DX: E67.3 Hypervitaminosis D (principal) ==

== ENCOUNTER → 2024-12-10 | Outpatient (CLI) | payer MEDICARE ==
[2024-12-10 13:30] LABS: CREATININE FOR GFR 0.82 MG/DL (0.55-1.30); GLOMERULAR FILTRATION RATE 73.2 (>39)
== END ==
LOC: M PLALAB 12:02
PROVIDERS: ATTEND Psychiatry & Neurology Neurology
DX: I10 Essential (primary) hypertension (principal)

== ENCOUNTER → 2025-01-09 | Outpatient (CLI) | payer MEDICARE ==
[2025-01-09 15:33] LABS: CREATININE FOR GFR 0.71 MG/DL (0.55-1.30); GLOMERULAR FILTRATION RATE 87.0 (>39)
== END ==
LOC: M LAB 14:27
PROVIDERS: ATTEND Psychiatry & Neurology Neurology
DX: I10 Essential (primary) hypertension (principal)

== ENCOUNTER → 2025-04-08 | Outpatient (REF) | payer MEDICARE | LOC: M SFHCPLAZ 15:57 | PROVIDERS: ATTEND Family Medicine | DX: Z53.9 Procedure and treatment not carried out, unspecified reason (principal) ==

== ENCOUNTER → 2025-05-17 | Outpatient (CLI) | payer MEDICARE | LOC: M PLALAB 11:03 | PROVIDERS: ATTEND Family Medicine | DX: E55.9 Vitamin D deficiency, unspecified (principal) ==